=== PATIENT | male | born 1990 | race Caucasian/White ===

== ENCOUNTER 2024-03-14 19:00 | Observation (INO) | payer OTHER, SELFPAY ==
[2024-03-14 19:10] VITALS: BP 159/100; PULSE 77; TEMP 37.4; O2SAT 98; BMI 27.2
--- NOTE | 2024-03-14 19:52 | ED.EXTPRO1 ---
HPI - Extremity Problem General Chief complaint: Extremity Problem, Nontraumatic Stated complaint: LOWER EXTREMITY INJURY, LEFT Time Seen by Provider: 03/14/24 19:50 Source: patient Mode of arrival: walk-in History of Present Illness HPI Narrative: golf cart fell onto left ankle a couple of days ago. states it immediately turned black and blue. has area of dark contusion just superior to the lat. malleolus. States he feels a lot of pressure and mild pain. No fever or chills or nasusea Related Data Allergies Allergy/AdvReac Type Severity Reaction Status Date / Time No Known Drug Allergies Allergy Verified 03/14/24 19:14 Review of Systems ROS Status of ROS 10 or more systems reviewed and unremarkable except as noted in history and below Exam Constitutional Vital Signs, click to edit/add: Last Vital Signs Temp 99.3 F 03/14/24 19:10 Pulse 77 03/14/24 19:10 Resp 16 03/14/24 19:10 BP 159/100 H 03/14/24 19:10 Pulse Ox 98 03/14/24 19:10 O2 Del Method Room Air 03/14/24 19:10 Common normals: no apparent distress, average body habitus, oriented x3, no limitations, healthy appearing, alert and well nourished [facility] Common normals: normocephalic and head/scalp atraumatic Eye Common normals: EOMs intact bilaterally Respiratory Common normals: normal respiratory effort, no retractions, no use of accessory muscles and clear to auscultation bilaterally Cardio Common normals: regular rate, regular rhythm, S1 normal heart sound and S2 normal heart sound GI Common normals: Normal to inspection, nondistended, normoactive bowel sounds present, soft to palpation and non-tender Extremity Extremity image (front): 1. red streak up the leg. focal area of dark contusion 4cm just above lat. malleolus. edema of the ankle and foot. ecchymosis along side lat. aspect of the foot Neuro Common normals: oriented x3, CN's II-XII intact bilaterally, moves all extremities and no focal motor deficits Psych Appearance: grossly normal Course Vital Signs Vital signs: Vital Signs Temperature 99.3 F 03/14/24 19:10 Pulse Rate 77 03/14/24 19:10 Respiratory Rate 16 03/14/24 19:10 Blood Pressure 159/100 H 03/14/24 19:10 Pulse Oximetry 98 03/14/24 19:10 Oxygen Delivery Method Room Air 03/14/24 19:10 Temperature 99.3 F 03/14/24 19:10 Pulse Rate 77 03/14/24 19:10 Respiratory Rate 16 03/14/24 19:10 Blood Pressure 159/100 H 03/14/24 19:10 Pulse Oximetry 98 03/14/24 19:10 Oxygen Delivery Method Room Air 03/14/24 19:10 MDM - Extremity (Nontraumatic) MDM Narrative Medical decision making narrative: patient present 2 days after golf cart fell onto the left leg. presents with swelling and focal area of contusion at the ankle but also has red streak up the leg suspicious for cellulitis. xray demonstrates fracture of the lateral malleolus. IV clindamycin ordered. Discussed with online program coordinator orthopedics and patient admitted to hospitalist service Lab Data Labs: Lab Results 03/14/24 Range/Units 20:02 WBC 8.4 (4.0-11.0) 10^3/uL RBC 5.26 (4.70-6.10) 10^6/uL Hgb 15.6 (14.0-18.0) g/dL Hct 45.6 (42.0-54.0) % MCV 86.7 (80.0-94.0) fL MCH 29.7 (25.9-34.0) pg MCHC 34.2 (29.9-35.2) g/dL RDW 12.3 (11.0-15.0) % Plt Count 260 (150-450) 10^3/uL MPV 10.3 (9.5-13.5) fL Neut % (Auto) 57.5 (43.0-75.0) % Lymph % (Auto) 29.4 (20.5-60.0) % [place] % (Auto) 9.0 (1.7-12.0) % Eos % (Auto) 3.3 (0.9-7.0) % Baso % (Auto) 0.4 (0.2-2.0) % Neut # (Auto) 4.9 (1.4-6.5) 10^3/uL Lymph # (Auto) 2.5 (1.2-3.8) 10^3/uL [place] # (Auto) 0.8 (0.3-0.8) 10^3/uL Eos # (Auto) 0.3 (0.0-0.7) 10^3/uL Baso # (Auto) 0.0 (0.0-0.1) 10^3/uL Abs Immat Gran (auto) 0.03 (0.00-0.03) 10^3/uL Imm/Tot Granulo (auto) 0.4 (0.0-0.5) % Sodium 142 (136-145) mmol/L Potassium 4.0 (3.5-5.1) mmol/L Chloride 104 (98-107) mmol/L Carbon Dioxide 27.2 (21.0-32.0) mmol/L Anion Gap 14.8 BUN 18.0 (7.0-18.0) mg/dL Creatinine 1.01 (0.70-1.30) mg/dL Est GFR ( Amer) >60 (>=60) Est GFR (Non-Af Amer) >60 (>=60) BUN/Creatinine Ratio 17.8 Glucose 95 (74-106) mg/dL Lactate 1.1 (0.4-2.0) mmol/L Calcium 9.2 (8.5-10.1) mg/dL C-Reactive Protein 1.62 H (<=0.50) mg/dL Discharge Plan Discharge Chief Complaint: Extremity Problem, Nontraumatic Clinical Impression: Ankle fracture, left, Cellulitis Patient Disposition: Admitted As Inpatient Procedures ED Procedure Instructions Procedures Procedures: left ankle fracture. Posterior ankle fiber glass splint placed left ankle. tolerated well. N/V normal post procedure
--- NOTE | 2024-03-14 19:55 | XR_ITS ---
The [place] [id number] Patient Name: ANAYA MILES MRN: [id number] date: 1990 Sex: M Assigned Patient Location: ER Current Patient Location: ED.MAIN Accession/Order Number: [id number] Exam Date: 03/14/2024 20:30 Report Date: 03/14/2024 21:15 At the request of: DANIEL WEATHERS Procedure: XR ankle LT min 3V EXAM: XR ankle LT min 3V HISTORY: injury COMPARISON: Left foot x-ray 03/14/2024. TECHNIQUE: AP oblique lateral x-ray left ankle. FINDINGS: Distal fibular fracture mildly displaced with marked soft tissue swelling. Normal symmetric mortise. No other fracture. No joint effusion. XR/XR ankle LT min 3V IMPRESSION: Distal fibular fracture mildly displaced with marked soft tissue swelling. Electronically authenticated by: JACQUI QUINTANILLA Date: 03/14/2024 21:15
--- NOTE | 2024-03-14 19:55 | XR_ITS ---
The [address] [address] Patient Name: ANAYA MILES MRN: [id number] date: 1990 Sex: M Assigned Patient Location: ER Current Patient Location: ER Accession/Order Number: [id number] Exam Date: 03/14/2024 20:30 Report Date: 03/14/2024 21:16 At the request of: DANIEL WEATHERS Procedure: XR foot LT min 3V EXAM: XR foot LT min 3V HISTORY: Rolled ankle several days ago. Injury with pain. COMPARISON: Left ankle radiographs obtained the same day, dictated separately. TECHNIQUE: 3 view left foot. FINDINGS: There is an acute/subacute slightly obliquely oriented fracture of the distal fibular diaphysis with significant overlying lateral soft tissue swelling and edema from injury. This will be described in more detail on left ankle x-ray. Soft tissue swelling extends along the dorsum of the midfoot and forefoot. Remaining osseous structures are intact. No other fractures are seen at the left foot. Joints are maintained including ankle mortise. No joint effusion. No narrowing or dislocation. XR/XR foot LT min 3V IMPRESSION: 1. Acute/subacute distal fibular diaphyseal fracture with extensive overlying soft tissue swelling also extending dorsum ankle and midfoot. Please see left ankle report for details. 2. No additional fractures are seen at the foot. Electronically authenticated by: GELY HERNANDEZ Date: 03/14/2024 21:16
[2024-03-14 20:12] LABS: Basophils Percent Auto 0.4 % (0.2-2.0); Eosinophils Absolute Auto 0.3 10^3/uL (0.0-0.7); Eosinophils Percent Auto 3.3 % (0.9-7.0); Hematocrit 45.6 % (42.0-54.0); Hemoglobin 15.6 g/dL (14.0-18.0); Immature Granulocytes Abs Auto 0.03 10^3/uL (0.00-0.03); Immature Granulocytes Pct Auto 0.4 % (0.0-0.5); Lymphocytes Absolute Auto 2.5 10^3/uL (1.2-3.8); Lymphocytes Percent Auto 29.4 % (20.5-60.0); Mean Corpuscular HGB Conc 34.2 g/dL (29.9-35.2); Mean Corpuscular Hemoglobin 29.7 pg (25.9-34.0); Mean Corpuscular Volume 86.7 fL (80.0-94.0); Mean Platelet Volume 10.3 fL (9.5-13.5); Monocytes Absolute Auto 0.8 10^3/uL (0.3-0.8); Neutrophils Absolute Auto 4.9 10^3/uL (1.4-6.5); Neutrophils Percent Auto 57.5 % (43.0-75.0); Platelet Count 260 10^3/uL (150-450); Red Blood Count 5.26 10^6/uL (4.70-6.10); Red Cell Distribution Width 12.3 % (11.0-15.0); White Blood Count 8.4 10^3/uL (4.0-11.0)
[2024-03-14] MEDS: CLINDAMYCIN PHOSPHATE/D5W 900 MG/50 ML PIGGYBACK 100 MG IV (20:16)
[2024-03-14 20:24] LABS: Anion Gap 14.8; BUN Creatinine Ratio 17.8; C Reactive Protein 1.62 mg/dL (<=0.50); Calcium 9.2 mg/dL (8.5-10.1); Carbon Dioxide 27.2 mmol/L (21.0-32.0); Chloride 104 mmol/L (98-107); Estimated GFR (African America >60 (>=60); Estimated GFR (Non-African Ame >60 (>=60); Glucose 95 mg/dL (74-106); Sodium 142 mmol/L (136-145)
[2024-03-14 20:31] LABS: Lactate/Lactic Acid 1.1 mmol/L (0.4-2.0)
[2024-03-14 22:15] VITALS: BP 147/94; PULSE 71; TEMP 37; O2SAT 95
[2024-03-14 22:17] VITALS: BP 147/94; PULSE 71; TEMP 37; O2SAT 95; BMI 28.1
--- NOTE | 2024-03-14 22:44 | XR_ITS ---
The [address] [address] Patient Name: ANAYA MILES MRN: [id number] date: 1990 Sex: M Assigned Patient Location: MS Current Patient Location: MS Accession/Order Number: [id number] Exam Date: 03/14/2024 23:10 Report Date: 03/15/2024 00:17 At the request of: NICHOLE CARTY Procedure: XR hand RT 2V EXAM: XR hand RT 2V HISTORY: Patient states right hand pain only when they touched her thumb to their fingers. The lesion may have been caused from a recent fall according to notes. Swelling, bruising COMPARISON: None. TECHNIQUE: 2 view right hand. FINDINGS: Normal bone mineralization. No acute or healing fractures. On lateral view, the first finger and second finger touching with question of slight widening along the ulnar aspect of the first MCP joint. Correlate for point tenderness. Patient could've injured their ulnar collateral ligament with disruption. No subluxation or dislocation of joint is otherwise maintained. Remaining imaged joints of the right wrist and fingers are normal and well preserved. No osseous lesion. No soft tissue swelling. No erosive or destructive bone changes. XR/XR hand RT 2V IMPRESSION: 1. Question of some slight widening of the ulnar aspect first MCP joint which could reflect injury to the ulnar collateral ligament if symptomatic in this region. Correlate for point tenderness. Consider MRI of thumb on nonemergent or outpatient basis to assess if clinically warranted. Electronically authenticated by: GELY HERNANDEZ Date: 03/15/2024 00:17
[2024-03-14 23:04] VITALS: O2SAT 95
[2024-03-15 04:38] VITALS: BP 130/79; PULSE 59; TEMP 36.6; O2SAT 94
[2024-03-15] MEDS: CLINDAMYCIN PHOSPHATE/D5W 600 MG/50 ML PIGGYBACK 100 MG IV ×2 (04:38→11:27)
[2024-03-15 05:12] LABS: Basophils Percent Auto 0.4 % (0.2-2.0); Eosinophils Absolute Auto 0.3 10^3/uL (0.0-0.7); Eosinophils Percent Auto 4.4 % (0.9-7.0); Hematocrit 41.9 % (42.0-54.0); Immature Granulocytes Abs Auto 0.02 10^3/uL (0.00-0.03); Immature Granulocytes Pct Auto 0.3 % (0.0-0.5); Lymphocytes Absolute Auto 2.5 10^3/uL (1.2-3.8); Lymphocytes Percent Auto 34.1 % (20.5-60.0); Mean Corpuscular HGB Conc 33.4 g/dL (29.9-35.2); Mean Corpuscular Hemoglobin 29.4 pg (25.9-34.0); Mean Corpuscular Volume 87.8 fL (80.0-94.0); Mean Platelet Volume 10.5 fL (9.5-13.5); Monocytes Absolute Auto 0.9 10^3/uL (0.3-0.8); Neutrophils Absolute Auto 3.6 10^3/uL (1.4-6.5); Neutrophils Percent Auto 48.8 % (43.0-75.0); Platelet Count 239 10^3/uL (150-450); Red Blood Count 4.77 10^6/uL (4.70-6.10); Red Cell Distribution Width 12.3 % (11.0-15.0); White Blood Count 7.4 10^3/uL (4.0-11.0)
[2024-03-15 05:40] LABS: Alanine Aminotransferase 49 U/L (16-63); Albumin Globulin Ratio 1.3; Albumin Level 3.6 g/dL (3.4-5.0); Alkaline Phosphatase 82 U/L (46-116); Aspartate Amino Transferase 29 U/L (15-37); BUN Creatinine Ratio 16.2; Bilirubin Total 0.5 mg/dL (0.2-1.0); Calcium 8.8 mg/dL (8.5-10.1); Carbon Dioxide 29.8 mmol/L (21.0-32.0); Chloride 106 mmol/L (98-107); Estimated GFR (African America >60 (>=60); Estimated GFR (Non-African Ame >60 (>=60); Globulin 2.8 g/dL; Glucose 96 mg/dL (74-106); Potassium 3.8 mmol/L (3.5-5.1); Sodium 142 mmol/L (136-145); Total Protein 6.4 g/dL (6.4-8.2)
[2024-03-15 06:54] LABS: INR 1.04; Partial Thromboplastin Time 28.8 sec (22.3-36.2)
[2024-03-15 07:54] VITALS: BP 117/54; PULSE 72; TEMP 36.8; O2SAT 95
--- NOTE | 2024-03-15 08:20 | P.HP_ITS ---
HPI H&P: HPI History of Present Illness Chief complaint: LOW EXTREMITY INJURY, LT ANKLE FRACTURE CELLULITUS Narrative: Patient presented to the emergency room with increasing leg pain. Found to have open wound on his left ankle, also left fibular fracture. When I saw patient up on the medical surgical floor, he was resting comfortably in bed, no other complaints other than the left ankle pain. Denies chest pain or shortness of breath or URI symptoms. Opioid HPI Opioid Management Most Recent Pain and Opioid Data: Last Pain Assessment 03/15/24 08:44 Last ORT Total Score 1 03/14/24 22:12 Last ORT Risk Category Low Risk 03/14/24 22:12 Review of Systems ROS Status of ROS 10 or more systems reviewed and unremark able except as noted in history and below [facility] Social History (Updated 03/14/24 @ 22:33 by Alisha Gibbons) Within the past year, how often did you have a drink containing alcohol: 2-4 times a month Within the past year, how often did you have six or more drinks on one occasion: less than monthly Do you use any of these nicotine containing products: vaping products Previous occupational history: [employer] Known occupational exposures/hazards: No Highest level of school completed/degree received: high school graduate Are you now , , , , never or living with a partner: never In a typical week, how many times do you talk on the telephone with family, friends, or neighbors: 3 or more times per week How often do you get together with friends or relatives: 3 or more times per week How often do you attend rastafari or samaritan services: never Little interest or pleasure in doing things: not at all Feeling down, depressed, or hopeless: not at all Feel stressed/tense/nervous/anxious/difficulty sleeping: not at all Gender Identity: male Meds Home Medications and Allergies Allergies Allergy/AdvReac Type Severity Reaction Status Date / Time No Known Drug Allergies Allergy Verified 03/14/24 19:14 Exam Constitutional Vital Signs, click to edit/add: Last Vital Signs Temp 98.3 F 03/15/24 07:54 Pulse 72 03/15/24 07:54 Resp 16 03/15/24 07:58 BP 117/54 03/15/24 07:54 Pulse Ox 95 03/15/24 07:54 O2 Del Method Room Air 03/15/24 07:54 Documenting provider has reviewed patient's vital signs: yes Common normals: no apparent distress HENMT Common normals: normocephalic and head/scalp atraumatic Chest Common normals: inspection of chest normal Respiratory Common normals: normal respiratory effort, no retractions and clear to auscultation bilaterally Cardio Common normals: regular rate, regular rhythm and no murmurs GI Common normals: Normal to inspection, nondistended, normoactive bowel sounds present, soft to palpation and non-tender Extremity Common normals: abnormal to inspection (Leg wrapped, reviewed picture, significant open wound and cellulitis - left) Results Labs Labs: Short CBC 03/14/24 03/15/24 Range/Units 20:02 04:36 WBC 8.4 7.4 (4.0-11.0) 10^3/uL Hgb 15.6 14.0 (14.0-18.0) g/dL Hct 45.6 41.9 L (42.0-54.0) % Plt Count 260 239 (150-450) 10^3/uL BMP 03/14/24 03/15/24 20:02 04:36 Sodium 142 142 Potassium 4.0 3.8 Chloride 104 106 Carbon Dioxide 27.2 29.8 BUN 18.0 17.0 Creatinine 1.01 1.05 Glucose 95 96 Calcium 9.2 8.8 Liver Function 03/15/24 Range/Units 04:36 Total Bilirubin 0.5 (0.2-1.0) mg/dL AST 29 (15-37) U/L ALT 49 (16-63) U/L Alkaline Phosphatase 82 (46-116) U/L Albumin 3.6 (3.4-5.0) g/dL Assessment and Plan Assessment and Plan (1) Cellulitis: (2) Ankle fracture, left: Plan Uncontrolled hypertension secondary to lower extremity traumatic injury with a left fibular fracture, open wound with evidence for progressive cellulitis-will add Rocephin to the clindamycin, consult orthopedics for mildly displaced fibular fracture. Consult to wound therapy as well. Admission status: Initially placed patient in observation, orthopedic evaluation later today, depending on surgical intervention and recommendations for antibiotics patient in need to be changed to inpatient status. Medically necessary treatment could possibly span 2 midnights.
--- NOTE | 2024-03-15 08:43 | CM.NOTE ---
Rounds made with Dr. Bowens. Await further plan from Orthopaedics.
[2024-03-15] MEDS: 0.9 % SODIUM CHLORIDE 250 ML 10 ML IV (09:31)
[2024-03-15] MEDS: CEFTRIAXONE 1,000 MG in 0.9 % SODIUM CHLORIDE 50 ML 100 MG IV (09:32)
--- NOTE | 2024-03-15 15:12 | P.DS_ITS ---
DS: Providers Provider Date of admission: 03/14/24 22:01 Primary care physician: Non-Staff Physician, Consults: 03/14/24 21:14 Consult to Orthopedic Surgery Routine Consulting Provider: Paxton Smiley Reason For Exam: Reason for consultation: L ankle Cellulitis, ? Fx Has provider been notified: Yes 03/15/24 08:20 Consult to Wound Care Routine Consulting Provider: Neeraj Steve Reason for consultation: leg wound Has provider been notified: No DS: Diagnosis Discharge Diagnosis (1) Cellulitis: (2) Ankle fracture, left: Plan Uncontrolled hypertension secondary to lower extremity traumatic injury with a left fibular fracture, open wound with evidence for progressive cellulitis-will add Rocephin to the clindamycin, consult orthopedics for mildly displaced fibular fracture. Consult to wound therapy as well. Admission status: Initially placed patient in observation, orthopedic evaluation later today, depending on surgical intervention and recommendations for antibiotics patient in need to be changed to inpatient status. Medically ne cessary treatment could possibly span 2 midnights. ? DS: Summary Time Spent with Patient Time attestation: Total time spent providing and/or coordinating discharge services: Exam Constitutional Vital Signs, click to edit/add: Last Vital Signs Temp 98.3 F 03/15/24 07:54 Pulse 72 03/15/24 07:54 Resp 16 03/15/24 07:58 BP 117/54 03/15/24 07:54 Pulse Ox 95 03/15/24 07:54 O2 Del Method Room Air 03/15/24 07:54 DS: Data Data Completed and Pending Labs on day of discharge: Labs from last 24 hours 03/15/24 03/15/24 03/14/24 06:34 04:36 20:02 WBC 7.4 8.4 RBC 4.77 5.26 Hgb 14.0 15.6 Hct 41.9 L 45.6 MCV 87.8 86.7 MCH 29.4 29.7 MCHC 33.4 34.2 RDW 12.3 12.3 Plt Count 239 260 MPV 10.5 10.3 Neut % (Auto) 48.8 57.5 Lymph % (Auto) 34.1 29.4 Ray % (Auto) 12.0 9.0 Eos % (Auto) 4.4 3.3 Baso % (Auto) 0.4 0.4 Neut # (Auto) 3.6 4.9 Lymph # (Auto) 2.5 2.5 Ray # (Auto) 0.9 H 0.8 Eos # (Auto) 0.3 0.3 Baso # (Auto) 0.0 0.0 Abs Immat Gran (auto) 0.02 0.03 Imm/Tot Granulo (auto) 0.3 0.4 PT 11.0 INR 1.04 APTT 28.8 Sodium 142 142 Potassium 3.8 4.0 Chloride 106 104 Carbon Dioxide 29.8 27.2 Anion Gap 10.0 14.8 BUN 17.0 18.0 Creatinine 1.05 1.01 Est GFR ( Amer) >60 >60 Est GFR (Non-Af Amer) >60 >60 BUN/Creatinine Ratio 16.2 17.8 Glucose 96 95 Lactate 1.1 Calcium 8.8 9.2 Total Bilirubin 0.5 AST 29 ALT 49 Alkaline Phosphatase 82 C-Reactive Protein 1.62 H Total Protein 6.4 Albumin 3.6 Globulin 2.8 Albumin/Globulin Ratio 1.3 Discharge Plan Discharge Disposition: Home, Self-Care Condition: Good Discharge Medications: New cephalexin 500 mg capsule 1,000 mg PO BID Qty: 40 0RF doxycycline monohydrate 100 mg capsule 100 mg PO BID 10 Days Qty: 20 0RF Print Language: Angolan Forms: Portal Instructions
--- NOTE | 2024-03-15 15:25 | PM.ORCN ---
History of Present Illness HPI Consult date: 03/15/24 Consult reason: fracture Chief complaint: LOW EXTREMITY INJURY, LT ANKLE FRACTURE CELLULITUS Narrative: Patient reports on March 11 he had a golf cart to fall onto his left ankle with acute onset of pain. He developed increased pain and discoloration over the weekend and presented to the emergency room last night. He was admitted for IV antibiotics for cellulitis. Orthopedics was consulted for his fibular fracture. Patient reports very minimal discomfort. Review of Systems ROS Status of ROS 10 or more systems reviewed and unremarkable except as noted in history and below [facility] Social History (Updated 03/14/24 @ 22:33 by Alisha Gibbons) Within the past year, how often did you have a drink containing alcohol: 2-4 times a month Within the past year, how often did you have six or more drinks on one occasion: less than monthly Do you use any of these nicotine containing products: vaping products Previous occupational history: [employer] Known occupational exposures/hazards: No Highest level of school completed/degree received: high school graduate Are you now , , , , never or living with a partner: never In a typical week, how many times do you talk on the telephone with family, friends, or neighbors: 3 or more times per week How often do you get together with friends or relatives: 3 or more times per week How often do you attend adventist or hinduism services: never Little interest or pleasure in doing things: not at all Feeling down, depressed, or hopeless: not at all Feel stressed/tense/nervous/anxious/difficulty sleeping: not at all Gender Identity: male Meds Home Medications and Allergies Home Medications ?Medication ?Instructions ?Recorded ?Confirmed ?Type cephalexin 500 mg capsule 1,000 mg (2 x 500 mg) PO BID #40 03/15/24 Rx caps doxycycline monohydrate 100 mg 100 mg PO BID 10 days #20 caps 03/15/24 Rx capsule Allergies Allergy/AdvReac Type Severity Reaction Status Date / Time No Known Drug Allergies Allergy Verified 03/14/24 19:14 Exam Constitutional Vital Signs, click to edit/add: Last Vital Signs Temp 98.3 F 03/15/24 07:54 Pulse 72 03/15/24 07:54 Resp 16 03/15/24 07:58 BP 117/54 03/15/24 07:54 Pulse Ox 95 03/15/24 07:54 O2 Del Method Room Air 03/15/24 07:54 Extremity Other: Examination today of his left ankle and lower extremity reveals no erythema. He has some mild to moderate amount of foot swelling and ecchymosis. He has a marker drawn on his leg where there was previous cellulitis but this has resolved. He has an eschar from his wound over the distal fibula just above the level of the ankle mortise. There is no drainage and no surrounding erythema. He is grossly neurovascularly intact. Results Labs Labs: Abnormal lab results 03/14/24 03/15/24 Range/Units 20:02 04:36 Hct 41.9 L (42.0-54.0) % [place] # (Auto) 0.9 H (0.3-0.8) 10^3/uL C-Reactive Protein 1.62 H (<=0.50) mg/dL H & H 03/14/24 03/15/24 Range/Units 20:02 04:36 Hgb 15.6 14.0 (14.0-18.0) g/dL Hct 45.6 41.9 L (42.0-54.0) % Coagulation 03/15/24 Range/Units 06:34 INR 1.04 All other labs normal. Diagnostic results Ankle/Foot x-ray: other (Ankle x-rays were reviewed and show a minimally displaced distal fibular fracture. Ankle mortise is intact.) Assessment and Plan Assessment and Plan (1) Cellulitis: (2) Ankle fracture, left: Plan For his left ankle fracture no indication at this time for surgical indication. No indication of infected wound at this time. Would be reasonable to discharge on Keflex and follow-up in my office in 1 week. A boot and nonweightbearing to the left lower extremity along with elevation to help with the swelling. I have discussed with the patient that his wound will ultimately heal by secondary intention although potentially will need some debridement in the future. He will follow-up in 1 week to reassess his progress.
--- NOTE | 2024-03-15 15:28 | PC.NURSE ---
dr booker rounded and gave recommendations
[2024-03-15 15:49] VITALS: BP 127/85; PULSE 62; TEMP 36.6; O2SAT 94
--- NOTE | 2024-03-16 13:10 | CM.DCFOLLOWU ---
Person spoke with:patient How are you feeling? well How is your pain? none Did you understand your discharge instructions? yes Do you have any questions about your discharge instructions? no Were you given any prescriptions at discharge? yes Were you able to get your prescriptions filled? yes Do you understand how to take your medications as ordered? yes Do you have any questions about your follow up appointment and do you plan to keep your follow up appointment? no questions, follow up reviewed Is there anything else that you would like to discuss? no Questions/Comments/Concerns/Other: no
== END 2024-03-15 16:10 | disposition home or self-care (01) ==
LOC: ER 21:12 → MS 03-15 06:09
PROVIDERS: Nurse Practitioner Acute Care; Admitting Provider Family Medicine; Emergency Provider Internal Medicine; Visit Provider Family Medicine
DX: L03.116 Cellulitis of left lower limb (principal); S82.832A Other fracture of upper and lower end of left fibula, initial encounter for closed fracture; V86.99XA Unspecified occupant of other special all-terrain or other off-road motor vehicle injured in nontraffic accident, initial encounter; F17.290 Nicotine dependence, other tobacco product, uncomplicated; I10 Essential (primary) hypertension
CPT/HCPCS: 29515; 36415; 73120; 73610; 73630; 80048; 80053; 83605; 85025; 85610; 85730; 86140; 96365; 96366; 96367; 99285; G0378; J0696; J0736

== ENCOUNTER 2024-03-22 12:12 | Outpatient (OUT) | payer OTHER, SELFPAY ==
--- NOTE | 2024-03-22 | XR_ITS ---
The [address] [address] Patient Name: ANAYA MILES MRN: [id number] date: 1990 Sex: M Assigned Patient Location: Current Patient Location: Accession/Order Number: [id number] Exam Date: 03/22/2024 12:25 Report Date: 03/24/2024 05:51 At the request of: TAURUS [place] Procedure: XR ankle LT min 3V PROCEDURE: XR ankle LT min 3V HISTORY: LEFT ANKLE PAIN COMPARISON: XR ankle left 03/14/2024 FINDINGS: BONES:Stable cortical irregularity along lateral margin of lateral malleolus at the diametaphyseal junction. No visible fracture line. Unremarkable distal tibia and ankle joint. SOFT TISSUES:Mild lateral soft tissue swelling. EFFUSION:None visible. OTHER: Negative. XR/XR ankle LT min 3V IMPRESSION: 1. Stable cortical irregularity along lateral margin of lateral malleolus suspected to represent impaction fracture. 2. Mild swelling; significantly improved. Electronically authenticated by: TAURUS ZHONG Date: 03/24/2024 05:51
== END 2024-03-22 12:13 | disposition home or self-care (01) ==
LOC: EC 12:12
PROVIDERS: Visit Provider Orthopaedic Surgery
DX: M25.572 Pain in left ankle and joints of left foot (principal)
CPT/HCPCS: 73610

== ENCOUNTER 2024-03-29 12:15 | Outpatient (OUT) | payer OTHER, SELFPAY ==
--- NOTE | 2024-03-29 | XR_ITS ---
The [place] [id number] Patient Name: ANAYA MILES MRN: [id number] date: 1990 Sex: M Assigned Patient Location: Current Patient Location: Accession/Order Number: [id number] Exam Date: 03/29/2024 12:15 Report Date: 03/30/2024 07:18 At the request of: TAURUS [place] Procedure: XR ankle LT min 3V PROCEDURE: XR ankle LT min 3V COMPARISON: 03/22/2024 HISTORY: LEFT ANKLE PAIN FINDINGS: BONES:Again demonstrated is a cortical step-off along the distal fibula measuring 2 mm. No significant lytic or sclerotic changes. SOFT TISSUES:Negative. No visible soft tissue swelling. EFFUSION:None visible. OTHER: Negative. XR/XR ankle LT min 3V IMPRESSION: Cortical step-off lateral fibula, possibly representing a fracture, age indeterminate Electronically authenticated by: ARNOLD CERVANTES Date: 03/30/2024 07:18
== END 2024-03-29 12:16 | disposition home or self-care (01) ==
LOC: EC 12:15
PROVIDERS: Visit Provider Orthopaedic Surgery
DX: S82.892D Other fracture of left lower leg, subsequent encounter for closed fracture with routine healing (principal)
CPT/HCPCS: 73610

== ENCOUNTER 2024-04-26 09:57 | Outpatient (OUT) | payer OTHER, SELFPAY ==
--- NOTE | 2024-04-26 | XR_ITS ---
The [address] [address] Patient Name: ANAYA MILES MRN: [id number] date: 1990 Sex: M Assigned Patient Location: Current Patient Location: Accession/Order Number: [id number] Exam Date: 04/26/2024 10:08 Report Date: 04/28/2024 05:07 At the request of: TAURUS [place] Procedure: XR ankle LT min 3V PROCEDURE: XR ankle LT min 3V HISTORY: LEFT ANKLE PAIN COMPARISON: XR ankle left 03/29/2024, 03/11/2024 FINDINGS: BONES:Stable cortical step-off along distal lateral margin of fibula. No callus formation or change in alignment. SOFT TISSUES:Skin surface defect along the distal lateral margin overlying site of distal fibular fracture. EFFUSION:None visible. OTHER: Negative. XR/XR ankle LT min 3V IMPRESSION: 1. Stable appearance of distal fibula is suspected to represent a fracture. No radiographic evidence of bone healing or change. 2. Decreased lateral soft tissue swelling with suspected overlying soft tissue wound. Electronically authenticated by: TAURUS ZHONG Date: 04/28/2024 05:07
== END 2024-04-26 09:58 | disposition home or self-care (01) ==
LOC: EC 09:57
PROVIDERS: Visit Provider Orthopaedic Surgery
DX: S82.62XD Displaced fracture of lateral malleolus of left fibula, subsequent encounter for closed fracture with routine healing (principal)
CPT/HCPCS: 73610

== ENCOUNTER 2024-05-31 09:07 | Outpatient (OUT) | payer OTHER, SELFPAY ==
--- NOTE | 2024-05-31 | XR_ITS ---
The [place] [id number] Patient Name: ANAYA MILES MRN: [id number] date: 1990 Sex: M Assigned Patient Location: Current Patient Location: Accession/Order Number: [id number] Exam Date: 05/31/2024 09:15 Report Date: 06/01/2024 18:20 At the request of: ATURUS [place] Procedure: XR tibia fibula LT 2V EXAM: XR tibia fibula LT 2V HISTORY: LEFT TIB FIB PAIN COMPARISON: 04/26/2024 FINDINGS/IMPRESSION: 1. Unchanged irregularity of the distal fibula consistent with healing fracture. 2. Normal alignment of the knee joint and ankle joint. No ankle joint effusion. 3. No acute fracture of the proximal aspect of the tibia or fibula. Electronically authenticated by: OSMAN FRAZIER Date: 06/01/2024 18:20
== END 2024-05-31 09:08 | disposition home or self-care (01) ==
LOC: EC 09:07
PROVIDERS: Visit Provider Orthopaedic Surgery
DX: S82.62XD Displaced fracture of lateral malleolus of left fibula, subsequent encounter for closed fracture with routine healing (principal)
CPT/HCPCS: 73590

== ENCOUNTER 2024-07-01 08:49 | Day surgery (SDC) | payer OTHER, SELFPAY ==
[2024-07-01] VITALS (16 sets, daily range): BP systolic 121–160; BP diastolic 68–101; PULSE 76–107; TEMP 37.1; O2SAT 91–98; BMI 27.3
--- NOTE | 2024-07-01 | OP_ITS ---
OPERATION DATE: 07/01/2024 PREOPERATIVE DIAGNOSIS: Acute appendicitis. POSTOPERATIVE DIAGNOSIS: Gangrenous acute appendicitis with localized peritonitis without abscess. PROCEDURE: Laparoscopic appendectomy. SURGEON: Teddy Peng M.D. ANESTHESIA: General endotracheal. ESTIMATED BLOOD LOSS: Less than 5 mL. INDICATIONS AND CONSENT: Patient is a 33-year-old male with a less than 24 hour history of abdominal pain, localized into the right lower quadrant. He had leukocytosis, right lower quadrant peritoneal signs and CT scan with evidence of appendicolith and dilated, inflamed appendix. Indications, risks, benefits, alternatives of proceeding with laparoscopic appendectomy were explained extensively to the patient, including the risks of bleeding, infection, bowel injury, appendiceal stump leak, blood clot, pulmonary embolus, heart attack, anesthetic complications, need for further surgery or open procedure. All of his questions were answered. Informed consent was obtained. PROCEDURE: Patient brought to the operating room, placed in the supine position. General anesthesia was induced. Moon catheter was inserted using sterile technique. The abdomen was prepped and draped in the usual sterile fashion. A supraumbilical incision was made with the scalpel blade and carried down through subcutaneous tissue using blunt dissection. The fascia was grasped and incised. Two 0 Vicryl stay sutures were placed on either side of the midline fascia. Stanislav trocar was then inserted and secured using the stay sutures. The abdomen was then insufflated with carbon dioxide to a pressure of 15 mm/Hg. The scope was then inserted and the abdomen was visualized. Two 5 mm ports were then placed; one in the left lower quadrant, one in the suprapubic area, both under direct visualization. The appendix was noted to be significantly dilated with gangrenous changes. There was normal caliber to the base, and then the area where the fecalith was and distal, was obstructed, inflamed and gangrenous. There was no evidence of perforation or abscess. There were inflammatory changes of the terminal ileum that were adherent to the area as well. The non-inflamed portion of the appendix was grasped and a window was created in the avascular portion of the mesoappendix. The appendiceal artery could be noted within this window. It was clipped with two regular 5 mm clips. The base of the appendix was then stapled using an endoscopic stapler, 3.5 mm nitesh, 45 mm length. The mesoappendix was then divided using a reload of the stapler with the hugo thin vascular 45 mm load. There was good hemostasis. There was minimal oozing from the appendiceal staple line on the cecum and this was controlled with the 5 mm clips. The appendix was then brought out in an Endocatch bag through the umbilical port site. The abdomen was then copiously irrigated with saline until clear. The suture lines were inspected and noted to be hemostatic. All port sites were examined upon withdrawal of the ports. There was noted to be good hemostasis. The umbilical port site fascia was then closed with a 0 Vicryl figure of eight suture. All port sites were infiltrated with 0.5% Marcaine. The skin was then closed with interrupted 4-0 subcuticular Monocryl suture and skin glue. Sterile pressure dressings were applied as well as Medipore tape. Patient tolerated the procedure well, was extubated, Moon catheter was removed. He was sent to recovery room in good condition. . CC: Patient?s family physician [facility]
--- NOTE | 2024-07-01 | HP_ITS ---
HISTORY AND PHYSICAL ? Date:? 07/01/2024 ? CHIEF COMPLAINT:? Abdominal pain. ? HISTORY OF PRESENT ILLNESS:? Patient is a 33-year-old male, in good health, who reports the sudden onset of abdominal pain last evening.? Describes it as an ache, sharp at times, initially vague and then persisted and worsened in intensity.? He had a normal bowel movement yesterday.? Today, he had some nausea and episode of emesis.? He has not eaten anything today.? Because of the worsening pain, which was also worse with moving or ambulating, he presented to the ED for evaluation.? He was found to have a leukocytosis, as well as tenderness in the lower abdomen.? CT scan of the abdomen and pelvis was performed, which reveals a dilated appendix with a 7 mm fecalith and some mild stranding.? Patient denies previous abdominal surgery, is on no medications or [id number] medications.? Denies aspirin, nonsteroidal anti-inflammatory drugs.? He does vape some nicotine containing substances, but reports he has not in the last week.? He has no family history of GI malignancy or inflammatory bowel disease. ? ALLERGIES:? Patient has no known drug allergies. ? MEDICATIONS:? On no medications. ? PAST SURGICAL HISTORY:? No previous surgical operations. ? PAST MEDICAL HISTORY:? Did have an ankle fracture back in February that did not require surgery.? ? SOCIAL HISTORY:? Patient does report some social alcohol use, as well as vaping.? No illicit drug use. ? FAMILY HISTORY:? Noncontributory. ? REVIEW OF SYSTEMS:? Ten system review of systems is negative for recent weight loss or weight gain.? Denies increased fatigue or light-headedness.? Has had no earache or tinnitus.? No sinus congestion.? No sore throat or hoarseness.? No chest pain, palpitations or syncope.? No chronic cough, shortness of breath or hemoptysis.? He has had the abdominal pain, single episode of nausea/vomiting.? No diarrhea, constipation or decreased caliber of the stool.? No melena, hematochezia or bright red blood per rectum.? No dysuria, frequency, urgency or hematuria.? No headaches, seizures or tremors.? No easy bruising or bleeding.? No heat or cold intolerance.? No polydipsia, polyphagia or polyuria. ? PHYSICAL EXAM:? VITAL SIGNS:? Patient is afebrile.? Blood pressure is 153/89.? Pulse is 89 and regular.? Respiratory rate is 18.? O2 saturation is 98% on room air.? GENERAL:? In general, he is a well developed, well nourished male, in mild distress secondary to abdominal pain.? HEENT:? Normocephalic, atraumatic.? Sclerae anicteric.? Conjunctiva not injected.? Oral mucosa is moist without lesions.? NECK:? Supple with no adenopathy, thyromegaly or JVD. LUNGS:? Clear bilaterally.? CARDIAC EXAM:? Regular rhythm and rate without appreciable murmurs, rubs or gallops. ABDOMEN:? Soft.? There are positive bowel sounds.? It is non-distended.? There are right lower quadrant peritoneal signs.? No masses.? No hepatosplenomegaly.? No hernias.? No CVA tenderness. SKIN:? Warm and dry without lesions, rashes or ulcers. NEURO EXAM:? Non-focal.? Non-lateralizing.? Patient is awake, alert, oriented with appropriate affect. ? LABORATORY DATA:? White blood cell count is elevated at 16,900.? H&H is elevated as well due to dehydration.? Normal platelet count.? BUN is 13 with a creatinine of 0.9.? Glucose is mildly elevated at 121.? LFTs are normal.? C-reactive protein is elevated. ? IMAGING:? CT images are personally reviewed. ? ASSESSMENT:? A 33-year-old male with less than 24 hour history of abdominal pain, worsening now, localized to the right lower quadrant, with right lower quadrant peritoneal signs, leukocytosis and a CT scan with evidence of appendicolith and dilated appendix, all consistent with acute appendicitis. ? PLAN:? Indications, risks, benefits of proceeding with laparoscopic appendectomy were explained extensively to the patient, including risks of bleeding, infection, bowel injury, appendiceal stump leak, blood clot, pulmonary embolus, heart attack, anesthetic complications, need for further surgery or open procedure.? All of his questions were answered.? Informed consent was obtained.? We will begin IV antibiotics with Zosyn.? Keep patient NPO with hydration.? Proceed with a laparoscopic appendectomy.? ? CC:? Patient?s family physician KAYAD
--- OUTSIDE RECORDS SUMMARY | 2024-07-01 08:57 | XMS_ITS | CCD ---
Author Organization [facility] Care Team Providers Care Sheet Writer Name Role Phone DR ABEL DEL RIO Attending Cole DEL RIO, DR ABEL Sullivan Admitting Cole JORDAN, DR TOLBERT Consulting Unavailable REQUEST, DR MARLENE LISTED Primary Care Unavaila Rachael Travis Unavailable Nadya Lynch Unavailable Medications Current Medications Medication Drug Class(es) Dates Sig (Normalized) Sig (Original) amoxicillin 875 mg / clavulanate 125 mg oral tablet (1 source) Penicillin-class Antibacterial Start: 07-21-2023 take 1 tablet by mouth every twelve hours Amoxicillin-Pot Clavulanate 875-125 MG 1 tablet Orally every 12 hrs for 10 days Jun, Active predniSONE 20 mg oral tablet (1 source) Start: 01-23-2023 take 1 tablet by mouth every twelve hours prednisone 20 MG 1 tablet Orally BID for 5 days January, Active Problems Active Problems Problem Classification Problem Date Documented Date Episodic/Chronic Malaise and fatigue (1 source) Other fatigue; Translations: [OTHER FATIGUE] Onset: 10-09-2021 Episodic Other nervous system disorders (2 sources) Entrapment of right ulnar nerve; Translations: [Lesion of ulnar nerve, 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 Other nervous system disorders (4 sources) Paresthesia of skin; Translations: [PARESTHESIA OF SKIN] Onset: 10-07-2021 Episodic Other upper respiratory infections (3 sources) Acute pharyngitis, unspecified; Translations: [Acute sinusitis, unspecified] Episodic Otitis media and related conditions (1 source) Other acute nonsuppurative otitis media, bilateral Episodic Past or Other Problems Problem Classification Problem Date Documented Da te Episodic/Chronic Unclassified (1 source) Suspected COVID-19 virus infection Z20.822 Results Test Name Value Interpretation Reference Range Facility COVID + FLU Quick Testingon 07-21-2023 SARS-CoV-2 (COVID-19) RNA MARTA+probe Ql (Unsp spec) Negative [facility] Other COVID + FLU Quick Testing Negative [facility] Other Quick Strepon 07-21-2023 S. pyogenes Org specific cx Ql (Throat) Negative [facility] Other Quick Strep [facility] Other Quick Strepon 01-23-2023 S. pyogenes Org specific cx Ql (Throat) Negative [facility] Other Quick Strep [facility] Other CBC AUTO DIFFon 10-07-2021 BASO # 0.0 103/ul Normal 0.0-0.1 [facility] Comment on above: Performed By: #### C BC #### [facility] [address] [place] [address] Dr. Scott King Basophils/100 WBC (Bld) 0.3 % Normal 0.2-2.0 [facility] Comment on above: Performed By: #### C BC #### [facility] [address] [place] [address] Dr. Scott King EO # 0.2 103/ul Normal 0.0-0.7 [facility] Comment on above: Performed By: #### C BC #### [facility] [address] [place] [address] Dr. Scott King Eosinophils/100 WBC (Bld) 1.6 % Normal 0.9-7.0 [facility] Comment on above: Performed By: #### C BC #### [facility] [address] [place] [address] Dr. Scott King Erythrocyte distribution width (RBC) [Ratio] 12.8 % Normal 11.0-15.0 [facility] Comment on above: Performed By: #### C BC #### [facility] [address] [place] [address] Dr. Scott King Hematocrit (Bld) [Volume fraction] 51.3 % Normal 42.0-54.0 [facility] Comment on above: Performed By: #### C BC #### [facility] [address] [address] [address] Scott King Hemoglobin (Bld) [Mass/Vol] 17.5 g/dL Normal 14.0-18.0 [facility] Comment on above: Performed By: #### C BC #### [facility] [address] [place] [address] Dr. Scott King IG # 0.14 10e3/ul Critically high 0.00-0.03 [facility] Comment on above: Performed By: #### C BC #### [facility] [address] [place] [address] Dr. Scott King IG % 1.5 % Critically high 0.0-0.5 [facility] Comment on above: Performed By: #### C BC #### [facility] [address] [place] [address] Dr. Scott King LYMPH # 2.5 103/ul Normal 1.2-3.8 [facility] Comment on above: Performed By: #### C BC #### [facility] [address] [place] [address] Dr. Scott King Lymphocytes/100 WBC (Bld) 27.1 % Normal 20.5-60.0 [facility] Comment on above: Performed By: #### C BC #### [facility] [address] [place] [address] Dr. Scott King MANUAL DIFF REQ NO Normal [facility] Comment on above: Performed By: #### C BC #### [facility] [address] [place] [address] Dr. Scott King MCH (RBC) [Entitic mass] 29.6 pg Normal 25.9-34.0 [facility] Comment on above: Performed By: #### C BC #### [facility] [address] [place] [address] Dr. Scott King MCHC (RBC) [Mass/Vol] 34.1 g/dL Normal 29.9-35.2 [facility] Comment on above: Performed By: #### C BC #### [facility] [id number] Scott King MCV (RBC) [Entitic vol] 86.7 fL Normal 80.0-94.0 [facility] Comment on above: Performed By: #### C BC #### [facility] [address] [address] [address] Scott King MONO # 1.2 103/ul Critically high 0.3-0.8 [facility] Comment on above: Performed By: #### C BC #### [facility] [address] [address] [address] Scott King Monocytes/100 WBC (Bld) 12.5 % Critically high 1.7-12.0 [facility] Comment on above: Performed By: #### C BC #### [facility] [address] [address] [address] Scott King NEUT # 5.3 103/ul Normal 1.4-6.5 [facility] Comment on above: Performed By: #### C BC #### [facility] [address] [address] [address] Scott King Neutrophils/100 WBC (Bld) 57.0 % Normal 43.0-75.0 [facility] Comment on above: Performed By: #### C BC #### [facility] [address] [address] [address] Scott King Platelet mean volume (Bld) [Entitic vol] 9.7 fL Normal 9.5-13.5 [facility] Comment on above: Performed By: #### C BC #### [facility] [address] [address] [address] Scott King PLT 238 103/ul Normal 150-450 [facility] Comment on above: Performed By: #### C BC #### [facility] [id number] Scott King RBC 5.92 106/ul Normal 4.70-6.10 [facility] Comment on above: Performed By: #### C BC #### [facility] [address] [address] [address] Scott King WBC 9.4 103/ul Normal 4.0-11.0 [facility] Comment on above: Performed By: #### C BC #### [facility] [address] [address] [address] Scott King MONOon 10-07-2021 Monocytes (Bld) [#/Vol] Negative Normal NEGATIVE [facility] Comment on above: Performed By: #### M CARMEL #### [facility] [address] [place] [address] Dr. Scott King PROF CHEM 8 (BAS METB)on Anion gap [Moles/Vol] 10.7 mmol/L Normal [facility] Comment on above: Performed By: #### T SH, BMP #### [facility] [address] [place] [address] Dr. Scott King Calcium [Mass/Vol] 9.6 mg/dL Normal 8.4-10.2 [facility] Comment on above: Performed By: #### T SH, BMP #### [facility] [address] [place] [address] Dr. Scott King Chloride [Moles/Vol] 104 mmol/L Normal 98-107 [facility] Comment on above: Performed By: #### T SH, BMP #### [facility] [address] [place] [address] Dr. Scott King CO2 [Moles/Vol] 30.1 mmol/L Critically high 22.0-30.0 [facility] Comment on above: Performed By: #### T SH, BMP #### [facility] [address] [place] [address] Dr. Scott King Creatinine [Mass/Vol] 0.89 mg/dL Normal 0.66-1.25 [facility] Comment on above: Performed By: #### T SH, BMP #### [facility] [address] [place] [address] Dr. Scott King EGFR-AF SLOVENIAN >60 Normal >=60 [facility] Comment on above: Performed By: #### T SH, BMP #### [facility] [address] [address] [address] Scott King EGFR-NON AF SLOVENIAN >60 Normal >=60 [facility] Comment on above: Performed By: #### T SH, BMP #### [facility] [address] [address] [address] Scott King Glucose [Mass/Vol] 81 mg/dL Normal 74-106 [facility] Comment on above: Performed By: #### T SH, BMP #### [facility] [address] [address] [address] Scott King Potassium [Moles/Vol] 3.8 mmol/L Normal 3.4-5.0 [facility] Comment on above: Performed By: #### T SH, BMP #### [facility] [address] [place] [address] Dr. Scott King Sodium [Moles/Vol] 141 mmol/L Normal 137-145 [facility] Comment on above: Performed By: #### T SH, BMP #### [facility] [address] [place] [address] Dr. Scott King Urea nitrogen [Mass/Vol] 19.0 mg/dL Normal 9.0-20.0 [facility] Comment on above: Performed By: #### T SH, BMP #### [facility] [address] [place] [address] Dr. Scott King Urea nitrogen/Creatini ne [Mass ratio] 21.3 mg/mg Normal [facility] Comment on above: Performed By: #### T SH, BMP #### [facility] [address] [place] [address] Dr. Scott King TSHon 10-07-2021 TSH 2.491 uIU/mL Normal 0.470-4.680 [facility] Comment on above: Performed By: #### T SH, BMP #### [facility] [address] [place] [address] Dr. Scott King TSH RANGE SEE BELOW Normal [facility] Comment on above: Result Comment: <0.3 4 UIU/ml HYPERTHYROID 0.34-5.60 UIU/ml EUTHYROID >5.60 UIU/ml HYPOTHYROID Performed By: #### T , [facility] #### [facility] [address] [place], [place] [address] Dr. Scott King XR Chest 2 Views*on 09-20-20 21 XR Chest 2 Views* CLINICAL HISTORY: Le ft anterior chest numbness COMPARISON: None. TECHNIQUE: Chest radiographs, PA and lateral RESULT: No consolidation. No pleural effusion. No pneumothorax. Normal pulmonary vascular pattern. Normal cardiomediastinal silhouette.] No acute osseous findings. IMPRESSION: No acute radiographic abnormality. Report reported and signed by KENYATTA TOLEDO on 09/20/2021 1220 Normal [facility] XR Spine Cervical Complete*o n 09-20-2021 XR Spine Cervical Complete* CLINICAL HISTORY: Neck pain COMPARISON: None. TECHNIQUE: Cervical spine radiographs including oblique images. RESULT: Cervical lordosis is maintained. Vertebral body height and disc spaces are within normal limits. No fracture or subluxation. Atlantoaxial interval is maintained. No significant spondylotic change of the cervical spine. Neural foramina are patent. Partially imaged thoracic spine appear within normal limits. Precervical soft tissue is unremarkable. Imaged lung kim are clear. IMPRESSION: No acute findings. Report reported and signed by KENYATTA TOLEDO on 09/20/2021 1222 Normal [facility] [employer] XR hand RT min 3V*on 021 XR hand RT min 3V* [facility] [place] [address] [place] [address] XRay Report Signed Patient: Anaya Miles MR#: [id number] 5 : 1990 Acct:[id number] Age/Sex: 30 / M ADM Date: 02/09/21 Loc: XDUCLY Room: Type: [facility] Attending Dr: Mary QUESADA Ordering Provider: MARY ROCHE Date of Service: 02/09/21 XR/XR hand RT min 3V*: Injury of right hand, initial encounter Copies to: MARY ROCHE CLINICAL HISTORY: Right hand pain to the second, third and fourth metacarpals for 2 weeks. No known injury. XR hand RT min 3V* COMPARISON: None FINDINGS: AP, lateral and oblique views of the right hand were obtained. There is no evidence of fracture, dislocation or bony erosion. No significant soft tissue abnormality is noted. XR/XR hand RT min 3V* IMPRESSION: NEGATIVE EXAMINATION. Impression dictated by: Umesh John M.D.02/09/2021 11:37 AM Dictation Location: [place] [address] Transcribed By: [facility] 02/09/21 1137 Dictated By: Umesh John MD 02/09/21 1136 Signed By: 02/09/21 1137 [facility] Vital Signs Date Time Vital Sign Value Performing Clinician Facility 07-21-2023 18:00-0400 Body height 182.88 cm Nadya Lynch Other [facility] Other 07-21-2023 18:00-0400 Body mass index (BMI) [Ratio] 27.5 kg/m2 Nadya Lynch Other [facility] Other 07-21-2023 18:00-0400 Body temperature 97.9 [degF] Nadya Lynch Other [facility] Other 07-21-2023 18:00-0400 Body weight 91.99 kg Nadya Lynch Other [facility] Other 07-21-2023 18:00-0400 Respiratory rate 18 /min Nadya Lynch Other [facility] Other 07-21-2023 18:00-0400 SaO2% (BldA) [Mass fraction] 95 % Nadya Lynch Other [facility] Other 01-23-2023 19:20-0400 Body height 182.88 cm Rachael Cummings Other [facility] Other 01-23-2023 19:20-0400 Body mass index (BMI) [Ratio] 27.12 kg/m2 Rachael Cooleyler Other [facility] Other 01-23-2023 19:20-0400 Body temperature 98 [degF] Rachael Cummings Other [facility] Other 01-23-2023 19:20-0400 Body weight 90.72 kg Rachael Cummings Other [facility] Other 01-23-2023 19:20-0400 Respiratory rate 18 /min Rachael Cummings Other [facility] Other 01-23-2023 19:20-0400 SaO2% (BldA) [Mass fraction] 96 % Rachael Cooleyler Other [facility] Other Encounters Encounter Date Encounter Type Care Provider Facility Start: 07-21-2023 End: 07-21-2023 ambulatory Nadya Lynch Other [facility] Other Start: 07-21-2023 Office outpatient vi sit 25 minutes Nadya Lynch [facility] Start: 01-23-2023 End: 01-23-2023 ambulatory Rachael Cummings Other [facility] Other Start: 01-23-2023 Office outpatient vi sit 25 minutes Rachael Cummings [facility] Start: 10-07-2021 End: 10-07-[address] ABEL DEL RIO Facility: Payers Date Payer Category Payer Unknown [id number] 1957 Unknown [id number] Unknown [id number] Social History Date Type Detail Facility Sex Assigned At [facility] Other Evaluation note 07-21-2023 Note Date & Type Note Facility 07-21-2023 Evaluation note Encounter Date Diagnosis Assessment Notes Jun, Sore throat (ICD-10 - J02.9) Jun, Acute non-recurrent sinusitis, unspecified location (ICD-10 - J01.90) We will treat as sinus infection. Take Augmentin as prescribed and finish antibiotic course even if symptoms improve. Instructed to use cuzj-kjo-[id number] r sinus medication per label instructions for treatment of symptoms. May use Tylenol and or Motrin as needed for fever and discomfort. Follow-up with PCP if symptoms do not improve or worsen. All questions and concerns addressed Jun, Suspected COVID-19 virus infection (ICD-10 - Z20.822) [facility] Other Evaluation note 01-23-2023 Note Date & Type Note Facility 01-23-2023 Evaluation note Encounter Date Diagnosis Assessment Notes January, Sore throat (ICD-10 - J02.9) January, Acute effusion of both middle ears (ICD-10 - H65.193) Advised patient that rapid strep test was negative today in office. Discussed diagnosis with patient, explained to patient that there is middle ear fluid without signs of bacterial infection, antibiotics are not indicated at this time. This is commonly due to ET dysfunction, viral illness, allergies, barotrauma, or recent AOM. Advised patient that fluid in middle ear may take several weeks to resolve. Take Rx medications as directed. Encouraged use of OTC Zyrtec/Claritin and Flonase. Supportive treatment as directed, push fluids/test, Tylenol/Motrin for discomfort. Follow up with PCP in 2 weeks or sooner for new or worsening symptoms. Patient verbalizes understanding and is agreeable to treatment plan [facility] Other Summary Purpose Family History No Family History Records FoundNo Family History Records FoundNo Family History Records Found Advance Directives No Advanced Directives Records FoundNo Advanced Directives Records FoundNo Advanced Directives Records Found Additional Source Comments (unrecognized sect ion and content) No Status Records FoundNo Status Records FoundNo Status Records Found INFORMATION SOURCE (unrecogn ized section and content) DATE CREATED AUTHOR 09/21/2021 [facility] dical Specialist DATE CREATED AUTHOR AUTHOR'S ORGANIZ ATION 10/09/2021 [facility]ital DATE CREATED AUTHOR AUTHOR'S ORGANIZ ATION 10/10/2021 [facility] REASON FOR VISIT (unrecogniz ed section and content) SORE THROATSORE THROAT, SORE EARS FOR RECORDS PERTAINING TO PATIENTS WHO ARE OR HAVE BEEN ENROLLED IN A CHEMICAL DEPENDENCY/SUBSTANCEABUSE PROGRAM, SOME INFORMATION MAY BE OMITTED. This clinical summary was aggregated from multiple sources. Caution should be exercised in using it in the provision of clinical care. This summary normalizes information from multiple sources, and as a consequence, information in this document may materially change the coding, format and clinical context of patient data. In addition, data may be omitted in some cases. CLINICAL DECISIONS SHOULD BE BASED ON THE PRIMARY CLINICAL RECORDS. [employer] provides no warranty or guarantee of the accuracy or completeness of information in this document.
--- NOTE | 2024-07-01 09:02 | CT_ITS ---
[address] [address] Patient Name: ANAYA MILES MRN: [id number] date: 1990 Sex: M Assigned Patient Location: ER Current Patient Location: Accession/Order Number: [id number] Exam Date: 07/01/2024 09:22 Report Date: 07/01/2024 09:44 At the request of: REEMA DUNCAN Procedure: CT abdomen pelvis wo con EXAMINATION: CT abdomen pelvis wo con HISTORY: lower abd pain COMPARISON: No relevant comparison available. TECHNIQUE: Axial, Coronal, and Sagittal images were created without IV contrast. Dose reduction techniques were achieved by using automated exposure control and/or adjustment of mA and/or kV according to patient size and/or use of iterative reconstruction technique. FINDINGS: LUNG BASES: No visible pulmonary or pleural disease. LIVER: No enlargement, atrophy, abnormal density, or significant focal lesion. BILIARY: No dilatation or calcification. PANCREAS: No lesion, fluid collection, ductal dilatation, or atrophy. SPLEEN: No enlargement or focal lesion. ADRENALS: No mass or enlargement. KIDNEYS: No mass, obstruction, or calcification. BOWEL/MESENTERY: No visible mass, obstruction, or bowel wall thickening. AORTA/VASCULAR: No aneurysm or dissection. RETROPERITONEUM: No mass or adenopathy. LYMPH NODES: No adenopathy. URINARY BLADDER: No visible focal wall thickening, lesion, or calculus. PELVIC ORGANS: No visible mass. Pelvic organs appropriate for patient age. ABDOMINAL WALL: No mass or hernia. BONES: No bony lesion or fracture. OTHER: Negative. CT/CT abdomen pelvis wo con IMPRESSION: No acute intraperitoneal abnormality Electronically authenticated by: ARNOLD CERVANTES Date: 07/01/2024 09:44
--- NOTE | 2024-07-01 09:02 | ED_ITS ---
HPI - Abdominal Pain General Chief Complaint: Abdominal Pain Stated Complaint: ABDOMINAL PAIN Time Seen by Provider: 07/01/24 09:01 Source: patient Mode of arrival: walk-in Limitations: no limitations History of Present Illness HPI narrative: The patient is a 33-year-old male presenting to us with a lower abdominal pain associated with nausea and vomiting, the patient mentioned that he had his last bowel movement yesterday and it was not constipated. He also denies any other complaints of fever chills or any exposure of anybody with similar symptoms. No history of previous surgeries Related Data Home Medications ?Medication ?Instructions ?Recorded ?Confirmed No Known Home Medications 07/01/24 07/01/24 Allergies Allergy/AdvReac Type Severity Reaction Status Date / Time No Known Drug Allergies Allergy Verified 07/01/24 08:59 Review of Systems ROS Status of ROS 10 or more systems reviewed and unremark able except as noted in history and below [facility] Medical History (Updated 07/01/24 @ 10:57 by Arianna Daniels MD) Cellulitis ?L03.90 - Cellulitis, unspecified (ICD-10) Ankle fracture, left ?S82.892A - Other fracture of left lower leg, initial encounter for closed fracture (ICD-10) Social History (Updated 03/14/24 @ 22:33 by Alisha Gibbons) Within the past year, how often did you have a drink containing alcohol: 2-4 times a month Within the past year, how often did you have six or more drinks on one occasion: less than monthly Do you use any of these nicotine containing products: vaping products Previous occupational history: [employer] Known occupational exposures/hazards: No Highest level of school completed/degree received: high school graduate Are you now , , , , never or living with a partner: never In a typical week, how many times do you talk on the telephone with family, friends, or neighbors: 3 or more times per week How often do you get together with friends or relatives: 3 or more times per week How often do you attend rastafarian or alevism services: never Little interest or pleasure in doing things: not at all Feeling down, depressed, or hopeless: not at all Feel stressed/tense/nervous/anxious/difficulty sleeping: not at all Gender Identity: male Exam Narrative Exam Narrative: Nurses notes and vital signs reviewed and patient is not hypoxic. General: Well-appearing and in no apparent distress. Skin: Warm, dry, no pallor noted. No rash. Head: Normocephalic, atraumatic. Neck: Supple, non-tender. Eye: Pupils are equal, round and EOMI. No scleral icterus. Ears, Nose, Mouth, and Throat: TM are clear, no nasal mucosal hypertrophy. Oral mucosa is moist, no posterior oropharynx erythema, uvula is mid-line Cardiovascular: Regular Rate and Rhythm without murmur, gallop or rub. Respiratory: No accessory muscle use or respiratory distress. Lungs are clear to auscultation, no wheezing, rales or rhonchi Chest Wall: no tenderness Back: No midline thoracic or lumbar vertebral tenderness. No CVA tenderness Musculoskeletal: normal ROM, no calf or popliteal tenderness, no lower extre mity edema/swelling GI: Abdomen is soft, non-distended. Normal bowel sounds. No masses appreciated. The patient have a lower abdominal tenderness mostly toward suprapubic area and the right lower quadrant, no rebound, guarding, or rigidity noted. Neurological: A&O x4. No cranial nerve dysfunction observed. No truncal ataxia. Moves all extremities. Sensation intact. Psychiatric: Cooperative and interactive. Normal mood and affect. Constitutional Vital Signs, click to edit/add: Last Vital Signs Temp 98.7 F 07/01/24 08:55 Pulse 89 07/01/24 11:05 Resp 18 07/01/24 11:05 BP 153/89 H 07/01/24 11:05 Pulse Ox 98 07/01/24 11:05 O2 Del Method Room Air 07/01/24 08:55 Course Vital Signs Vital signs: Vital Signs Temperature 98.7 F 07/01/24 08:55 Pulse Rate 81 07/01/24 08:55 Respiratory Rate 20 07/01/24 08:55 Blood Pressure 160/90 H 07/01/24 08:55 Pulse Oximetry 97 07/01/24 08:55 Oxygen Delivery Method Room Air 07/01/24 08:55 Temperature 98.7 F 07/01/24 08:55 Pulse Rate 89 07/01/24 11:05 Respiratory Rate 18 07/01/24 11:05 Blood Pressure 153/89 H 07/01/24 11:05 Pulse Oximetry 98 07/01/24 11:05 Oxygen Delivery Method Room Air 07/01/24 08:55 MDM - Abdominal Pain MDM Narrative Medical decision making narrative: The patient CBC shows leukocytosis Chemistry was within normal The patient was treated in the ER with Pepcid IV as well as Zofran and Toradol CAT scan abdomen and pelvis without contrast--- showed that the patient have possible acute diverticulitis Patient case was discussed with and the he requested the patient to be started on Zosyn The patient was started on Zosyn and he will be kept n.p.o. for possible surgery Lab Data Labs: Lab Results 07/01/24 Range/Units 08:59 WBC 16.9 H (4.0-11.0) 10^3/uL RBC 6.27 H (4.70-6.10) 10^6/uL Hgb 18.5 H (14.0-18.0) g/dL Hct 52.9 (42.0-54.0) % MCV 84.4 (80.0-94.0) fL MCH 29.5 (25.9-34.0) pg MCHC 35.0 (29.9-35.2) g/dL RDW 13.1 (11.0-15.0) % Plt Count 263 (150-450) 10^3/uL MPV 10.6 (9.5-13.5) fL Neut % (Auto) 79.3 H (43.0-75.0) % Lymph % (Auto) 11.9 L (20.5-60.0) % [place] % (Auto) 7.4 (1.7-12.0) % Eos % (Auto) 0.8 L (0.9-7.0) % Baso % (Auto) 0.2 (0.2-2.0) % Neut # (Auto) 13.4 H (1.4-6.5) 10^3/uL Lymph # (Auto) 2.0 (1.2-3.8) 10^3/uL [place] # (Auto) 1.3 H (0.3-0.8) 10^3/uL Eos # (Auto) 0.1 (0.0-0.7) 10^3/uL Baso # (Auto) 0.0 (0.0-0.1) 10^3/uL Abs Immat Gran (auto) 0.06 H (0.00-0.03) 10^3/uL Imm/Tot Granulo (auto) 0.4 (0.0-0.5) % Sodium 138 (136-145) mmol/L Potassium 4.3 (3.5-5.1) mmol/L Chloride 100 (98-107) mmol/L Carbon Dioxide 23.7 (21.0-32.0) mmol/L Anion Gap 18.6 BUN 13.0 (7.0-18.0) mg/dL Creatinine 0.90 (0.70-1.30) mg/dL Est GFR ( Amer) >60 (>=60 mL/min/1.73m^2) Est GFR (Non-Af Amer) >60 (>=60 mL/min/1.73m^2) BUN/Creatinine Ratio 14.4 Glucose 121 H (74-106) mg/dL Calcium 9.7 (8.5-10.1) mg/dL Total Bilirubin 0.8 (0.2-1.0) mg/dL AST 23 (15-37) U/L ALT 54 (16-63) U/L Alkaline Phosphatase 100 (46-116) U/L Total Protein 7.1 (6.4-8.2) g/dL Albumin 4.4 (3.4-5.0) g/dL Globulin 2.7 g/dL Albumin/Globulin Ratio 1.6 Discharge Plan Discharge Patient Disposition: Admitted to Surgery
[2024-07-01] MEDS: KETOROLAC TROMETHAMINE 30 MG/ML VIAL 15 MG IVP (09:13)
[2024-07-01] MEDS: ONDANSETRON PF 4 MG/2 ML VIAL IV (09:13)
[2024-07-01] MEDS: FAMOTIDINE/PF 20 MG/2 ML VIAL IV (09:13)
[2024-07-01 09:20] LABS: Basophils Percent Auto 0.2 % (0.2-2.0); Eosinophils Absolute Auto 0.1 10^3/uL (0.0-0.7); Eosinophils Percent Auto 0.8 % (0.9-7.0); Hematocrit 52.9 % (42.0-54.0); Hemoglobin 18.5 g/dL (14.0-18.0); Immature Granulocytes Abs Auto 0.06 10^3/uL (0.00-0.03); Immature Granulocytes Pct Auto 0.4 % (0.0-0.5); Lymphocytes Percent Auto 11.9 % (20.5-60.0); Mean Corpuscular Hemoglobin 29.5 pg (25.9-34.0); Mean Corpuscular Volume 84.4 fL (80.0-94.0); Mean Platelet Volume 10.6 fL (9.5-13.5); Monocytes Absolute Auto 1.3 10^3/uL (0.3-0.8); Monocytes Percent Auto 7.4 % (1.7-12.0); Neutrophils Absolute Auto 13.4 10^3/uL (1.4-6.5); Neutrophils Percent Auto 79.3 % (43.0-75.0); Platelet Count 263 10^3/uL (150-450); Red Blood Count 6.27 10^6/uL (4.70-6.10); Red Cell Distribution Width 13.1 % (11.0-15.0); White Blood Count 16.9 10^3/uL (4.0-11.0)
[2024-07-01 09:31] LABS: Alanine Aminotransferase 54 U/L (16-63); Albumin Globulin Ratio 1.6; Albumin Level 4.4 g/dL (3.4-5.0); Alkaline Phosphatase 100 U/L (46-116); Anion Gap 18.6; Aspartate Amino Transferase 23 U/L (15-37); BUN Creatinine Ratio 14.4; Bilirubin Total 0.8 mg/dL (0.2-1.0); Calcium 9.7 mg/dL (8.5-10.1); Carbon Dioxide 23.7 mmol/L (21.0-32.0); Chloride 100 mmol/L (98-107); Estimated GFR (African America >60 (>=60 mL/min/1.73m^2); Estimated GFR (Non-African Ame >60 (>=60 mL/min/1.73m^2); Globulin 2.7 g/dL; Glucose 121 mg/dL (74-106); Potassium 4.3 mmol/L (3.5-5.1); Sodium 138 mmol/L (136-145); Total Protein 7.1 g/dL (6.4-8.2)
[2024-07-01] MEDS: PIPERACILLIN SODIUM/TAZOBACTAM 3.375 GM in 0.9 % SODIUM CHLORIDE 50 ML IV (11:13)
--- OUTSIDE RECORDS SUMMARY | 2024-07-01 13:03 | XMS_ITS | CCD ---
Author Organization [facility] Care Team Providers Care Graphic Specialist Name Role Phone DR ABEL DEL RIO [...] (COVID-19) RNA MARTA+probe Ql (Unsp spec) Negative [facility] Other COVID + FLU Quick Testing Negative [facility] Other Quick Strepon 07-21-2023 S. pyogenes Org specific cx Ql (Throat) Negative [facility] Quick Strep [facility] Quick Strepon 01-23-2023 S. pyogenes Org specific cx Ql (Throat) Negative [facility] Quick Strep [facility] Other CBC AUTO DIFFon 10-07-2021 BASO # 0.0 103/ul Normal 0.0-0.1 [facility] Comment on above: Performed By: #### C BC #### [facility] [address] [place] [address] Dr. Scott King Basophils/100 WBC (Bld) 0.3 % Normal 0.2-2.0 [facility] Comment on above: Performed By: #### C BC #### [facility] [address] [place] [address] Dr. Scott King EO # 0.2 103/ul Normal 0.0-0.7 [facility] Comment on above: Performed By: #### C BC #### [facility] [address] [place] [address] Dr. Scott King Eosinophils/100 WBC (Bld) 1.6 % Normal 0.9-7.0 [facility] Comment on above: Performed By: #### C BC #### [facility] [address] [place] [address] Dr. Scott King Erythrocyte distribution width (RBC) [Ratio] 12.8 % Normal 11.0-15.0 [facility] Comment on above: Performed By: #### C BC #### [facility] [address] [place] [address] Dr. Scott King Hematocrit (Bld) [Volume fraction] 51.3 % Normal 42.0-54.0 [facility] Comment on above: Performed By: #### C BC #### [facility] [address] [address] [address] Scott King Hemoglobin (Bld) [Mass/Vol] 17.5 g/dL Normal 14.0-18.0 [facility] Comment on above: Performed By: #### C BC #### [facility] [address] [place] [address] Dr. Scott King IG # 0.14 10e3/ul Critically high 0.00-0.03 [facility] Comment on above: Performed By: #### C BC #### [facility] [address] [place] [address] Dr. Scott King IG % 1.5 % Critically high 0.0-0.5 [facility] Comment on above: Performed By: #### C BC #### [facility] [address] [place] [address] Dr. Scott King LYMPH # 2.5 103/ul Normal 1.2-3.8 [facility] Comment on above: Performed By: #### C BC #### [facility] [address] [place] [address] Dr. Scott King Lymphocytes/100 WBC (Bld) 27.1 % Normal 20.5-60.0 [facility] Comment on above: Performed By: #### C BC #### [facility] [address] [place] [address] Dr. Scott King MANUAL DIFF REQ NO Normal [facility] Comment on above: Performed By: #### C BC #### [facility] [address] [place] [address] Dr. Scott King MCH (RBC) [Entitic mass] 29.6 pg Normal 25.9-34.0 [facility] Comment on above: Performed By: #### C BC #### [facility] [address] [place] [address] Dr. Scott King MCHC (RBC) [Mass/Vol] 34.1 g/dL Normal 29.9-35.2 [facility] Comment on above: Performed By: #### C BC #### [facility] [id number] Scott King MCV (RBC) [Entitic vol] 86.7 fL Normal 80.0-94.0 [facility] Comment on above: Performed By: #### C BC #### [facility] [address] [address] [address] Scott King MONO # 1.2 103/ul Critically high 0.3-0.8 [facility] Comment on above: Performed By: #### C BC #### [facility] [address] [address] [address] Scott King Monocytes/100 WBC (Bld) 12.5 % Critically high 1.7-12.0 [facility] Comment on above: Performed By: #### C BC #### [facility] [address] [address] [address] Scott King NEUT # 5.3 103/ul Normal 1.4-6.5 [facility] Comment on above: Performed By: #### C BC #### [facility] [address] [address] [address] Scott King Neutrophils/100 WBC (Bld) 57.0 % Normal 43.0-75.0 [facility] Comment on above: Performed By: #### C BC #### [facility] [address] [address] [address] Scott King Platelet mean volume (Bld) [Entitic vol] 9.7 fL Normal 9.5-13.5 [facility] Comment on above: Performed By: #### C BC #### [facility] [address] [address] [address] Scott King PLT 238 103/ul Normal 150-450 [facility] Comment on above: Performed By: #### C BC #### [facility] [id number] Scott King RBC 5.92 106/ul Normal 4.70-6.10 [facility] Comment on above: Performed By: #### C BC #### [facility] [address] [address] [address] Scott King WBC 9.4 103/ul Normal 4.0-11.0 [facility] Comment on above: Performed By: #### C BC #### [facility] [address] [address] [address] Scott King MONOon 10-07-2021 Monocytes (Bld) [#/Vol] Negative Normal NEGATIVE [facility] Comment on above: Performed By: #### M CARMEL #### [facility] [address] [place] [address] Dr. Scott King PROF CHEM 8 (BAS METB)on Anion gap [Moles/Vol] 10.7 mmol/L Normal [facility] Comment on above: Performed By: #### T SH, BMP #### [facility] [address] [place] [address] Dr. Scott King Calcium [Mass/Vol] 9.6 mg/dL Normal 8.4-10.2 [facility] Comment on above: Performed By: #### T SH, BMP #### [facility] [address] [place] [address] Dr. Scott King Chloride [Moles/Vol] 104 mmol/L Normal 98-107 [facility] Comment on above: Performed By: #### T SH, BMP #### [facility] [address] [place] [address] Dr. Scott King CO2 [Moles/Vol] 30.1 mmol/L Critically high 22.0-30.0 [facility] Comment on above: Performed By: #### T SH, BMP #### [facility] [address] [place] [address] Dr. cSott King Creatinine [Mass/Vol] 0.89 mg/dL Normal 0.66-1.25 [facility] Comment on above: Performed By: #### T SH, BMP #### [facility] [address] [place] [address] Dr. Scott King EGFR-AF PARAGUAYAN >60 Normal >=60 [facility] Comment on above: Performed By: #### T SH, BMP #### [facility] [address] [address] [address] Scott King EGFR-NON AF PARAGUAYAN >60 Normal >=60 [facility] Comment on above: Performed By: #### T SH, BMP #### [facility] [address] [address] [address] Scott King Glucose [Mass/Vol] 81 mg/dL Normal 74-106 [facility] Comment on above: Performed By: #### T SH, BMP #### [facility] [address] [address] [address] Scott King Potassium [Moles/Vol] 3.8 mmol/L Normal 3.4-5.0 [facility] Comment on above: Performed By: #### T SH, BMP #### [facility] [address] [place] [address] Dr. Scott King Sodium [Moles/Vol] 141 mmol/L Normal 137-145 [facility] Comment on above: Performed By: #### T SH, BMP #### [facility] [address] [place] [address] Dr. Scott King Urea nitrogen [Mass/Vol] 19.0 mg/dL Normal 9.0-20.0 [facility] Comment on above: Performed By: #### T SH, BMP #### [facility] [address] [place] [address] Dr. Scott King Urea nitrogen/Creatini ne [Mass ratio] 21.3 mg/mg Normal [facility] Comment on above: Performed By: #### T SH, BMP #### [facility] [address] [place] [address] Dr. Scott King TSHon 10-07-2021 TSH 2.491 uIU/mL Normal 0.470-4.680 [facility] Comment on above: Performed By: #### T SH, BMP #### [facility] [address] [place] [address] Dr. Scott King TSH RANGE SEE BELOW Normal [facility] Comment on above: Result Comment: <0.3 4 UIU/ml HYPERTHYROID 0.34-5.60 UIU/ml EUTHYROID >5.60 UIU/ml HYPOTHYROID Performed By: #### T , [facility] [place] #### [facility] [address] [place], [place] [address] Dr. Scott King XR Chest 2 Views*on 09-20-20 21 XR Chest 2 Views* CLINICAL HISTORY: Le ft anterior chest numbness COMPARISON: None. TECHNIQUE: Chest radiographs, PA and lateral RESULT: No consolidation. No pleural effusion. No pneumothorax. Normal pulmonary vascular pattern. Normal cardiomediastinal silhouette.] No acute osseous findings. IMPRESSION: No acute radiographic abnormality. Report reported and signed by KENYATTA TOLEDO on 09/20/2021 1220 Normal [facility] XR Spine Cervical Complete*o n 09-20-2021 XR [...] by KENYATTA TOLEDO on 09/20/2021 1222 Normal [facility] [employer] XR hand RT min 3V*on 021 XR hand RT min 3V* [facility] [address] [place] [address] XRay Report Signed Patient: Anaya Miles MR#: [id number] 5 : 1990 Acct:[id number] Age/Sex: 30 / M ADM Date: 02/09/21 Loc: XDUCLY Room: Type: [facility] Attending Dr: Mary QUESADA Ordering Provider: [...] Umesh John M.D.02/09/2021 11:37 AM Dictation Location: [place] [address] Transcribed By: [facility] 02/09/21 1137 Dictated By: Umesh John MD 02/09/21 1136 Signed By: 02/09/21 1137 [facility] Vital Signs Date Time Vital Sign Value Performing Clinician Facility 07-21-2023 18:00-0400 Body height 182.88 cm Nadya Lynch Other [facility] 07-21-2023 18:00-0400 Body mass index (BMI) [Ratio] 27.5 kg/m2 Nadya Lynch Other [facility] 07-21-2023 18:00-0400 Body temperature 97.9 [degF] Nadya Lynch Other [facility] 07-21-2023 18:00-0400 Body weight 91.99 kg Nadya Lynch Other [facility] 07-21-2023 18:00-0400 Respiratory rate 18 /min Nadya Lynch Other [facility] 07-21-2023 18:00-0400 SaO2% (BldA) [Mass fraction] 95 % Nadya Lynch Other [facility] 01-23-2023 19:20-0400 Body height 182.88 cm Rachael Cummings Other [facility] 01-23-2023 19:20-0400 Body mass index (BMI) [Ratio] 27.12 kg/m2 Rachael Cooleyler Other [facility] 01-23-2023 19:20-0400 Body temperature 98 [degF] Rachael Cummings Other [facility] 01-23-2023 19:20-0400 Body weight 90.72 kg Rachael Cummings Other [facility] 01-23-2023 19:20-0400 Respiratory rate 18 /min Rachael Cummings Other [facility] 01-23-2023 19:20-0400 SaO2% (BldA) [Mass fraction] 96 % Rachael Cooleyler Other [facility] Encounters Encounter Date Encounter Type Care Provider Facility Start: 07-21-2023 End: 07-21-2023 ambulatory Nadya Lynch Other [facility] Start: 07-21-2023 Office outpatient vi sit 25 minutes Nadya Lynch [facility] Start: 01-23-2023 End: 01-23-2023 ambulatory Rachael Cummings Other [facility] Start: 01-23-2023 Office outpatient vi sit 25 minutes Rachael Cummings [facility] Start: 10-07-2021 End: 10-07-[address] ABEL DEL RIO Facility: Payers Date Payer Category Payer Unknown [id number] 1957 Unknown [id number] Unknown [id number] Social History Date Type Detail Facility Sex Assigned At [facility] Evaluation note 07-21-2023 Note Date & Type Note Facility 07-21-2023 Evaluation note Encounter Date Diagnosis Assessment Notes Jun, Sore throat (ICD-10 - J02.9) Jun, Acute non-recurrent sinusitis, unspecified location (ICD-10 - J01.90) We will treat as sinus infection. Take Augmentin as prescribed and finish antibiotic course even if symptoms improve. Instructed to use [id number] r sinus medication per label instructions for treatment of symptoms. May use Tylenol and or Motrin as needed for fever and discomfort. Follow-up with PCP if symptoms do not improve or worsen. All questions and concerns addressed Jun, Suspected COVID-19 virus infection (ICD-10 - Z20.822) [facility] Other Evaluation note 01-23-2023 Note Date & [...] understanding and is agreeable to treatment plan [facility] Summary Purpose Family History No Family History Records FoundNo Family History Records FoundNo Family History Records Found Advance Directives No Advanced Directives Records FoundNo Advanced Directives Records FoundNo Advanced Directives Records Found Additional Source Comments (unrecognized sect ion and content) No Status Records FoundNo Status Records FoundNo Status Records Found INFORMATION SOURCE (unrecogn ized section and content) DATE CREATED AUTHOR 09/21/2021 [facility] dical Specialist DATE CREATED AUTHOR AUTHOR'S ORGANIZ ATION 10/09/2021 [facility] pital DATE CREATED AUTHOR AUTHOR'S ORGANIZ ATION 10/10/2021 [facility] REASON FOR VISIT (unrecogniz ed section and [...] BE BASED ON THE PRIMARY CLINICAL RECORDS. [employer] provides no warranty or guarantee of the accuracy or completeness of information in this document.
[2024-07-01] MEDS: LACTATED RINGER'S SOLUTION 1,000 ML 50 ML IV (13:04)
[2024-07-01] MEDS: BUPIVACAINE HCL 0.5% PF 50 MG/10 ML VIAL 20 ML INJ (14:05)
[2024-07-01] MEDS: HYDROMORPHONE HCL 0.5 MG/0.5 ML SYRINGE IV (14:36)
[2024-07-01] MEDS: HYDROCODONE/ACET 5-325 MG TABLET 1 TAB PO (15:37)
== END 2024-07-01 17:05 | disposition home or self-care (01) ==
LOC: ER 11:47 → SURGOUT 12:47
PROVIDERS: Emergency Provider Emergency Medicine; Visit Provider Surgery
PROC: (CPT 840; principal; 2024-07-01 13:00)
DX: K35.31 Acute appendicitis with localized peritonitis and gangrene, without perforation (principal); K38.1 Appendicular concretions; F17.290 Nicotine dependence, other tobacco product, uncomplicated
CPT/HCPCS: 44970; 36415; 74176; 80053; 85025; 87040; 88305; 96365; 96375; 99285; J0131; J0330; J0665; J1171; J1885; J2250; J2371; J2405; J2543; J2704; J3010

== ENCOUNTER 2024-10-21 08:27 | Emergency (ER) | payer OTHER, SELFPAY ==
[2024-10-21] VITALS (12 sets, daily range): BP systolic 123–157; BP diastolic 87–104; PULSE 62–78; TEMP 36.8; O2SAT 95–100; BMI 23.0
--- OUTSIDE RECORDS SUMMARY | 2024-10-21 08:35 | XMS_ITS | CCD ---
Author Organization [facility] Care Team Providers Care Buckle Assembler Name Role Phone QUANG, DR ABEL Sullivan Attending Cole DEL RIO, DR ABEL Sullivan Admitting Cole JORDAN, DR TOLBERT Consulting Unavailable REQUEST, DR MARLENE LISTED Primary Care Unavaila Rachael Travis Unavailable Nadya Lynch Unavailable NO FAMILY, PHYSICIAN Primary Care Provider MD Teddy Maldonado Attending Provider NONE, XXXX Primary Care Physician Unavailab Teddy Urban Attending Unavailable Teddy PENG Attending Unavailable NO FAMILY, PHYSICIAN Primary Care Unavailable Teddy Peng Attending Teddy Morales Admitting Unavailable Allergies Allergy Classification Reported Allergen(s) Allergy Type Date of Onset Reaction(s) Facility (1 source) No Known Medication Allergies; Translations: [No Known Medication Allergies] Propensity to adverse reactions (disorder) [facility] Repository Medications Current Medications Medication Drug Class(es) Dates Sig (Normalized) Sig (Original) amoxicillin 875 mg / clavulanate 125 mg oral tablet (2 sources) Penicillin-class Antibacterial Start: 12-25-2023 take 1 tablet by mouth twice daily Amoxicillin-Pot Clavulanate Active 1 TAB PO Twice daily December 25, 2023 12:00am Start: 07-21-2023 take 1 tablet by jayde th every twelve hours Amoxicillin-Pot Clavulanate 875-125 MG 1 tablet Orally every 12 hrs for 10 days Jun, Active fluticasone propionate 0.05 mg/actuat metered dose nasal spray (1 source) Corticosteroid Start: 12-25-2023 take 1 spray(s) nasal route once daily Fluticasone Propionate Active 2 SPRAY INTRANASAL Daily December 25, 2023 12:00am administer into each nostril ibuprofen 800 mg oral tablet (1 source) Nonsteroidal Anti-inflammatory Drug Start: 07-16-2017 take 800 mg by mouth three times daily Ibuprofen Active 800 MG PO Three times daily July 16, 2017 12:00am predniSONE 20 mg oral tablet (1 source) Start: 01-23-2023 take 1 tablet by mouth every twelve hours prednisone 20 MG 1 tablet Orally BID for 5 days January, Active Problems Active Problems Problem Classification Problem Date Documented Date Episodic/Chronic Appendicitis and other appendiceal conditions (2 sources) Acute appendicitis with localized peritonitis; Translations: [Acute appendicitis with localized peritonitis and gangrene, without perforation] Onset: 07-06-2024 Episodic Malaise and fatigue (1 source) Other fatigue; Translations: [OTHER FATIGUE] Onset: 10-09-2021 Episodic Nonspecific chest pain (1 source) Musculoskeletal chest pain; Translations: [Other chest pain] 09-03-2023 Episodic Other nervous system disorders (2 sources) [...] Test Name Value Interpretation Reference Range Facility Ambulatory Visit Summaryon 1 Ambulatory Visit Summary Ambulatory Visit Summary ANAYA MILES :1990 Visit Date:07/06/2024 Ambulatory Visit Instructions Your Diagnosis Acute gangrenous appendicitis with localized peritonitis, without perforation Your Care Team Attending Physician - Teddy PENG MD Primary Care Physician - NONE, XXXX Procedures Performed Laparoscopic appendectomy (07/01/2024). What to do next You Need to Schedule the Following Appointments Follow Up with ALINE DAVIS, Teddy Gomez, OSWALDO When: Only if needed Where: [address] [place] [address]- Allergies No Known Allergies No Known Medication Allergies Problems Ongoing - Any problem that you are currently receiving treatment for. Acute gangrenous appendicitis with localized peritonitis, without perforation Patient Survey You may receive a survey via text or e-mail asking about your office visit. Please share your experience with us by completing your survey. We appreciate your feedback and thank you for choosing us for your care. Kieran Flores [facility] General Surgery Office/Clini c Noteon 07-06-2024 General Surgery Office/Clinic Note General Surgery Office/Clinic Note Chief Complaint post operative follow up HPI Staff 5 day post operative follow up post lap appendectomy completed while inpatient at [facility]. Denies discomfort, taking Ibuprofen 400mg daily. Denies bleeding or drainage. Bowels moving well. History of Present Illness 5 days s/p LS appendectomy for acute, gangrenous appendicitis; pathology with acute appendicitis with fecalith; doing well, completing course of antibiotics; no fevers, no N/V; pain controlled with ibuprofen; normal bms, loose at times, no drainage from incisions. Review of Systems PHQ Score Initial Depression Screen Score: 0 SCORE ROS - Provider Constitutional: no fever, no sweats, no weight loss. Eyes: no glasses, no blurred vision, no visual loss. ENMT: no dentures, no hoarseness, no swallowing difficulties, no hearing loss, no ear infection(s), no nose bleeds. Cardiovascular: normal blood pressure, no chest pain, regular heartbeat, no heart murmur. Respiratory: no shortness of breath, no cough, no asthma, no wheezing. Gastrointestinal: no nausea, no vomiting, no diarrhea, no constipation, no blood in stool, no change in bowel habits, no abdominal pain, no hepatitis. Genitourinary: no kidney stones, no urine infection, no dysuria. Musculoskeletal: no pain, no weakness. Skin: no changing moles, no rash, no skin lumps. Neurologic: no seizures, no epilepsy, no headache. Psychiatric: no emotional or psychiatric problem. Heme/Lymph: no bleeding problems, no anemia, no blood clots, no transfusions. Allergy/Immunologic: no swollen lymph nodes/glands, no IV drug abuse. Other: Additional ROS info: Except as noted in the above Review of Systems and in the History of Present Illness, all other systems have been reviewed and are negative or noncontributory. Physical Exam abd: soft, nondistended, incisions without erythema or drainage; resolving ecchymosis; normal bs. Assessment/Plan 1. Acute gangrenous appendicitis with localized peritonitis, without perforation (K35.31: Acute appendicitis with localized peritonitis and gangrene, without perforation) doing well, no lifitng > 10 lbs for 3 more weeks; call with problems/questions. Follow-up With When Contact Information Teddy PENG MD, SUR Only if needed [address] [place] [id number]- Additional Instructions: Problem List/Past Medical History Ongoing Acute gangrenous appendicitis with localized peritonitis, without perforation Historical No qualifying data Procedure/Surgical History Laparoscopic appendectomy (07/01/2024). Medications No active medications Allergies No Known Allergies No Known Medication Allergies Social History Alcohol - Denies Alcohol Use, 07/06/2024 Substance Abuse - Denies Substance Abuse, 07/06/2024 Tobacco Never (less than 100 in lifetime) Tobacco Use:. Never Smokeless Tobacco Use:., 07/06/2024 Family History Family history is negative Normal [facility] Comment on above: Result Comment: Elec tronically Signed By: Teddy PENG MD\.br\Date and Time Signed: 07/06/24 15:04 EDT Tree 07-01-2024 L Specimen: [id number] Received: 07/02/24 Status: AGUSTIN Crouch Num: [id number] Spec Type: Surgical Subm Dr: Teddy Peng MD FACS Tissues: A Appendix - Other than Incidental (APPENDIX) Procedures: HE/2, Gross/Micro L3 Age/ Patient Sex Location Account Attending Physician Anaya Miles 33/M LABELL [id number] Teddy Peng MD FACS SPEC NUM: [id number] RECD: 07/02/24 STATUS: AGUSTIN CROUCH NUM: [id number] LA: 07/01/[address]: Teddy Peng MD FACS ENTERED: 07/02/24 [facility] DR: Sonia Felipe SPEC TYPE: Surgical DEPT: LETHA CHACON ENTERED BY: [id number] RECV BY: [id number] ORDERED: HE/2, Gross/Micro L3 ORDERED: HE/2, Gross/Micro L3 Pathological Diagnosis Appendix, appendectomy: - Acute purulent appendicitis and periappendicitis with fecalith. Clinical Information Acute appendicitis Gross Description The specimen is received in formalin with the patient's name and appendix and consists of a rodriguez-hugo inflamed vermiform appendix measuring 6.0 cm in length with a diameter of 1.0 cm. There is a staple line across the proximal margin. The proximal margin is removed and inked black. The serosal surface is rodriguez-hugo and smooth. The attached mesoappendix measures 5.0 x 2.8 x 1.0 cm. The specimen is sectioned revealing a lumen measuring 1.3 cm in diameter. The lumen is filled with brown purulent debris. There is a fecalith grossly identified measuring 0.8 cm in greatest dimension. Student Worker sections are as follows: A1: proximal margin and 2 cross-sections A2: distal tip bisected Microscopic Description Microscopic examination is performed. ---- Specimen: [id number] Received: 07/02/24 Status: AGUSTIN Crouch Num: [id number] Spec Type: Surgical Subm Dr: Teddy Peng MD FACS Tissues: A Appendix - Other than Incidental (APPENDIX) Procedures: HE/2, Gross/Micro L3 ---- Patient: Anaya Miles [id number] (Continued) ---- Specimen: [id number] Received: 07/02/24 (Continued) Signed (signature on file) Camden Gillis MD 07/22/24 1004 ---- Specimen: [id number] Received: 07/02/24 Status: AGUSTIN Crouch Num: [id number] Spec Type: Surgical Subm Dr: Teddy Peng MD FACS Tissues: A Appendix - Other than Incidental (APPENDIX) Procedures: HE/2, Gross/Micro L3 ---- Patient: Anaya Miles [id number] (Continued) ---- Specimen: [id number] Received: 07/02/24 (Continued) CPT Codes 15123 ---- ---- Specimen: [id number] Received: 07/02/24 Status: AGUSTIN Wolfdaly Num: [id number] Spec Type: Surgical Subm Dr: Teddy Peng MD FACS Tissues: A Appendix - Other than Incidental (APPENDIX) Procedures: HE/2, Gross/Micro L3 ---- Patient: Anaya Miles [id number] (Continued) ---- Signed (signature on file) Camden Gillis MD 07/22/24 1004 Normal [facility] COVID + FLU Quick Testingon 07-21-2023 SARS-CoV-2 (COVID-19) RNA MARTA+probe Ql (Unsp spec) Negative [facility] Other COVID + FLU Quick Testing Negative [facility] Other Quick Strepon 07-21-2023 S. pyogenes Org specific cx Ql (Throat) Negative [facility] Other Quick Strep [facility] Other Quick Strepon 01-23-2023 S. pyogenes Org specific cx Ql (Throat) Negative [facility] Other Quick Strep [facility] Other CBC AUTO DIFFon 10-07-2021 BASO # 0.0 103/ul Normal 0.0-0.1 [facility] Comment on above: Performed By: #### C BC #### [facility] [address] [place] [address] Dr. Scott King Basophils/100 WBC (Bld) 0.3 % Normal 0.2-2.0 [facility] Comment on above: Performed By: #### C BC #### [facility] [address] [place] [address] Dr. Scott King EO # 0.2 103/ul Normal 0.0-0.7 [facility] Comment on above: Performed By: #### C BC #### [facility] [address] [place] [address] Dr. Scott King Eosinophils/100 WBC (Bld) 1.6 % Normal 0.9-7.0 [facility] Comment on above: Performed By: #### C BC #### [facility] [address] [place] [address] Dr. Scott King Erythrocyte distribution width (RBC) [Ratio] 12.8 % Normal 11.0-15.0 [facility] Comment on above: Performed By: #### C BC #### [facility] [address] [place] [address] Dr. Scott King Hematocrit (Bld) [Volume fraction] 51.3 % Normal 42.0-54.0 [facility] Comment on above: Performed By: #### C BC #### [facility] [address] [place] [address] Dr. Scott King Hemoglobin (Bld) [Mass/Vol] 17.5 g/dL Normal 14.0-18.0 [facility] Comment on above: Performed By: #### C BC #### [facility] [address] [place] [address] Dr. Scott King IG # 0.14 10e3/ul Critically high 0.00-0.03 [facility] Comment on above: Performed By: #### C BC #### [facility] [address] [place] [address] Dr. Scott King IG % 1.5 % Critically high 0.0-0.5 [facility] Comment on above: Performed By: #### C BC #### [facility] [address] [place] [address] Dr. Scott King LYMPH # 2.5 103/ul Normal 1.2-3.8 [facility] Comment on above: Performed By: #### C BC #### [facility] [address] [place] [address] Dr. Scott King Lymphocytes/100 WBC (Bld) 27.1 % Normal 20.5-60.0 [facility] Comment on above: Performed By: #### C BC #### [facility] [address] [place] [address] Dr. Scott King MANUAL DIFF REQ NO Normal [facility] Comment on above: Performed By: #### C BC #### [facility] [address] [place] [address] Dr. Scott King MCH (RBC) [Entitic mass] 29.6 pg Normal 25.9-34.0 [facility] Comment on above: Performed By: #### C BC #### [facility] [address] [place] [address] Dr. Scott King MCHC (RBC) [Mass/Vol] 34.1 g/dL Normal 29.9-35.2 [facility] Comment on above: Performed By: #### C BC #### [facility] [address] [place] [address] Dr. Scott King MCV (RBC) [Entitic vol] 86.7 fL Normal 80.0-94.0 [facility] Comment on above: Performed By: #### C BC #### [facility] [address] [place] [address] Dr. Scott King MONO # 1.2 103/ul Critically high 0.3-0.8 [facility] Comment on above: Performed By: #### C BC #### [facility] [address] [place] [address] Dr. Scott King Monocytes/100 WBC (Bld) 12.5 % Critically high 1.7-12.0 [facility] Comment on above: Performed By: #### C BC #### [facility] [address] [place] [address] Dr. Scott King NEUT # 5.3 103/ul Normal 1.4-6.5 [facility] Comment on above: Performed By: #### C BC #### [facility] [address] [place] [address] Dr. Scott King Neutrophils/100 WBC (Bld) 57.0 % Normal 43.0-75.0 [facility] Comment on above: Performed By: #### C BC #### [facility] [address] [place] [address] Dr. Scott King Platelet mean volume (Bld) [Entitic vol] 9.7 fL Normal 9.5-13.5 [facility] Comment on above: Performed By: #### C BC #### [facility] [address] [place] [address] Dr. Scott King PLT 238 103/ul Normal 150-450 [facility] Comment on above: Performed By: #### C BC #### [facility] [address] [place], [place] [id number] Dr. Scott King RBC 5.92 106/ul Normal 4.70-6.10 [facility] Comment on above: Performed By: #### C BC #### [facility] [address] [place] [address] Dr. Scott King WBC 9.4 103/ul Normal 4.0-11.0 [facility] Comment on above: Performed By: #### C BC #### [facility] [address] [address] [address] Scott King MONOon 10-07-2021 Monocytes (Bld) [#/Vol] Negative Normal NEGATIVE [facility] Comment on above: Performed By: #### M CARMEL #### [facility] [address] [place] [address] [address] Scott King PROF CHEM 8 (BAS METB)on Anion gap [Moles/Vol] 10.7 mmol/L Normal [facility] Comment on above: Performed By: #### T SH, BMP #### [facility] [address] [place] [address] Dr. Scott King Calcium [Mass/Vol] 9.6 mg/dL Normal 8.4-10.2 [facility] Comment on above: Performed By: #### T SH, BMP #### [facility] [address] [place] [address] Dr. Scott King Chloride [Moles/Vol] 104 mmol/L Normal 98-107 [facility] Comment on above: Performed By: #### T SH, BMP #### [facility] [address] [place] [address] Dr. Scott King CO2 [Moles/Vol] 30.1 mmol/L Critically high 22.0-30.0 [facility] Comment on above: Performed By: #### T SH, BMP #### [facility] [address] [place] [address] Dr. Scott King Creatinine [Mass/Vol] 0.89 mg/dL Normal 0.66-1.25 [facility] Comment on above: Performed By: #### T SH, BMP #### [facility] [address] [place] [address] Dr. Scott King EGFR-AF [place] >60 Normal >=60 [facility] Comment on above: Performed By: #### T SH, BMP #### [facility] [address] [place] [address] Dr. Scott King EGFR-NON AF [place] >60 Normal >=60 [facility] Comment on above: Performed By: #### T SH, BMP #### [facility] [address] [place] [address] Dr. Scott King Glucose [Mass/Vol] 81 mg/dL Normal 74-106 [facility] Comment on above: Performed By: #### T SH, BMP #### [facility] [address] [place] [address] Dr. Scott King Potassium [Moles/Vol] 3.8 mmol/L Normal 3.4-5.0 [facility] Comment on above: Performed By: #### T SH, BMP #### [facility] [address] [place] [address] Dr. Scott King Sodium [Moles/Vol] 141 mmol/L Normal 137-145 [facility] Comment on above: Performed By: #### T SH, BMP #### [facility] [address] [place] [address] Dr. Scott King Urea nitrogen [Mass/Vol] 19.0 mg/dL Normal 9.0-20.0 [facility] Comment on above: Performed By: #### T SH, BMP #### [facility] [address] [place] [address] Dr. Scott King Urea nitrogen/Creatini ne [Mass ratio] 21.3 mg/mg Normal [facility] Comment on above: Performed By: #### T SH, BMP #### [facility] [address] [place] [address] Dr. Scott King TSHon 10-07-2021 TSH 2.491 uIU/mL Normal 0.470-4.680 [facility] Comment on above: Performed By: #### T SH, BMP #### [facility] [address] [place] [address] Dr. Scott King TSH RANGE SEE BELOW Normal [facility] Comment on above: Result Comment: <0.3 4 UIU/ml HYPERTHYROID 0.34-5.60 UIU/ml EUTHYROID >5.60 UIU/ml HYPOTHYROID Performed By: #### T SH, BMP #### [facility] [address] [id number] [address] Scott King XR Chest 2 Views*on 09-20-20 XR Chest 2 Views* CLINICAL HISTORY: Le ft anterior chest numbness COMPARISON: None. TECHNIQUE: Chest radiographs, PA and lateral RESULT: No consolidation. No pleural effusion. No pneumothorax. Normal pulmonary vascular pattern. Normal cardiomediastinal silhouette.] No acute osseous findings. IMPRESSION: No acute radiographic abnormality. Report reported and signed by KENYATTA TOLEDO on 09/20/2021 1220 Normal [facility] XR Spine Cervical Complete*o n 09-20-2021 XR [...] by KENYATTA TOLEDO on 09/20/2021 1222 Normal [facility] Vital Signs Date Time Vital Sign Value Performing Clinician Facility 07-21-2023 18:00-0400 Body height 182.88 cm Nadya Lynch Other [facility] Other 07-21-2023 18:00-0400 Body mass index (BMI) [Ratio] 27.5 kg/m2 Nadya Lynch Other [facility] Other 07-21-2023 18:00-0400 Body temperature 97.9 [degF] Nadya Lynch Other [facility] Other 07-21-2023 18:00-0400 Body weight 91.99 kg Nadya Lynch Other [facility] Other 07-21-2023 18:00-0400 Respiratory rate 18 /min Nadya Lynch Other [facility] Other 07-21-2023 18:00-0400 SaO2% (BldA) [Mass fraction] 95 % Nadya Cris Other [facility] Other 01-23-2023 19:20-0400 Body height 182.88 cm Rachael Cummings Other [facility] Other 01-23-2023 19:20-0400 Body mass index (BMI) [Ratio] 27.12 kg/m2 Rachael Cummings Other [facility] Other 01-23-2023 19:20-0400 Body temperature 98 [degF] Rachael Cummings Other [facility] Other 01-23-2023 19:20-0400 Body weight 90.72 kg Rachael Cummings Other [facility] Other 01-23-2023 19:20-0400 Respiratory rate 18 /min Rachael Cummings Other [facility] Other 01-23-2023 19:20-0400 SaO2% (BldA) [Mass fraction] 96 % Rachael Cummings Other [facility] Other Encounters Encounter Date Encounter Type Care Provider Facility Start: 07-06-2024 End: 07-06-2024 ambulatory Tdedy PENG Facility: [facility] Start: 07-06-2024 End: 07-06-2024 Patient encounter procedure Teddy PENG [facility] Start: 07-05-2024 ambulatory Teddy PENG Facility:[facility] Start: 07-02-2024 ambulatory Teddy PENG Facility:[facility] Start: 07-01-2024 End: 07-01-2024 ambulatory PHYSICIAN NO [facility] Work Phone: Start: 07-01-2024 End: 07-01-2024 Departed Referred PHYSICIAN NO [facility] Start: 07-01-2024 End: 07-01-2024 ambulatory Teddy PENG Facility:CD:[id number] Start: 07-21-2023 End: 07-21-2023 ambulatory Nadya Lynch Other [facility] Other Start: 07-21-2023 Office outpatient visit 25 minutes Nadya Lynch [facility] Start: 01-23-2023 End: 01-23-2023 ambulatory Rachael Cummings Other [facility] Other Start: 01-23-2023 Office outpatient visit 25 minutes Rachael Emiliano [facility] Start: 10-07-2021 End: 10-07-[address] ABEL DEL RIO Facility:[facility] Procedures Date Procedure Procedure Detail Performing Clinician Start: 07-01-2024 Laparoscopic appendectomy Teddy PENG Payers Date Payer Category Payer Unknown [id number] 2. [id number] 2024 Self-pay [id number] 1990 Unknown [id number] 1990 Unknown [id number] [id number] [id number] 1990 Unknown [id number] [id number] [id number] 1957 Unknown [id number] Unknown [id number] [id number] [id number] Social History Date Type Detail Facility Sex Assigned At [facility] Start: 07-16-2017 Tobacco smoking stat us [facility] Smoker (finding) [facility] Start: 1990 Sex Assigned At Male F [facility] Start: 07-06-2024 Tobacco smoking status Never s moked tobacco (finding) [facility] Tobacco smoking status Never [facility] Functional Status Date Assessment Result Facility 07-06-2024 Functional Status N/A [facility] Hospital Discharge instructions 07-02-2024 Note Date & Type Note Facility 07-02-2024 Hospital Discharg e instructions Follow Up Care 07/02/2024 09:18:32 With:ALINE DAVIS, OSWALDO [place] Address: [address] [place], [place] [id number]- When: only if needed [facility] Evaluation note 07-21-2023 Note Date & Type Note Facility 07-21-2023 Evaluation note Encounter Date Diagnosis Assessment Notes Jun, Sore throat (ICD-10 - J02.9) Jun, Acute non-recurrent sinusitis, unspecified location (ICD-10 - J01.90) We will treat as sinus infection. Take Augmentin as prescribed and finish antibiotic course even if symptoms improve. Instructed to use [id number] r sinus medication per label instructions for treatment of symptoms. May use Tylenol and or Motrin as needed for fever and discomfort. Follow-up with PCP if symptoms do not improve or worsen. All questions and concerns addressed Jun, Suspected COVID-19 virus infection (ICD-10 - Z20.822) [facility] Other Evaluation note 01-23-2023 Note Date & [...] understanding and is agreeable to treatment plan [facility] Other Evaluation + Plan note Note Date & Type Note Facility Evaluation + Plan note No data available for this section [facility] Evaluation note Note Date & Type Note Facility Evaluation note No assessment information availa [facility] Work Phone: Progress note Note Date & Type Note Facility Progress note No data available for this section [facility] Summary Purpose Family History No Family History Records FoundNo Family History Records Found No data available for this section No Family History Records FoundNo Family History Records Found Advance Directives No Advanced Directives Records Found Advance Directive Response Recorded Date/ Time Advance Directives No July 16, 2017 2:04pm Additional Source Comments (unrecognized sect ion and content) No Status Records FoundNo Status Records FoundNo Status Records FoundNo Status Records Found INFORMATION SOURCE (unrecogn ized section and content) DATE CREATED AUTHOR 09/21/2021 [facility] dical Specialist DATE CREATED AUTHOR AUTHOR'S ORGANIZ ATION 10/09/2021 [facility] DATE CREATED AUTHOR AUTHOR'S ORGANIZ ATION 07/20/2024 [facility] DATE CREATED AUTHOR AUTHOR'S ORGANIZ ATION 07/24/2024 [facility] REASON FOR VISIT (unrecogniz ed section and content) SORE THROATSORE THROAT, SORE EARS Care Teams (unrecognized sec tion and content) Team Status: Active Member Role Status Dates PHYSICIAN NO FAMILY Primary Care Provider Active Team Status: Inactive Member Role Status Dates PHYSICIAN NO FAMILY Primary Care Provider Active Start: July 01, 2024 End: July 01, 2024 Teddy Peng MD [facility] Attending Provider Active Start: July 01, 2024 End: July 01, 2024 Goals (unrecognized section and content) Goals may be documented in a n alternate section FOR RECORDS PERTAINING TO PATIENTS WHO ARE [...] BE BASED ON THE PRIMARY CLINICAL RECORDS. [employer] provides no warranty or guarantee of the accuracy or completeness of information in this document.
[2024-10-21 08:44] LABS: Glucometer 110 mg/dL (74-106)
--- NOTE | 2024-10-21 08:44 | CT_ITS ---
[place] [id number] Patient Name: ANAYA MILES MRN: [id number] date: 1990 Sex: M Assigned Patient Location: ER Current Patient Location: Accession/Order Number: [id number] Exam Date: 10/21/2024 08:53 Report Date: 10/21/2024 10:52 At the request of: REEMA DUNCAN Procedure: CT head/brain wo con CT head without contrast, 10/21/2024. HISTORY: Weakness. Dizziness. Blurred vision. COMPARISON: None. TECHNIQUE: Noncontrast axial CT images obtained through the head. Reconstructions obtained in the sagittal and coronal planes. Dose reduction techniques were achieved by using automated exposure control and/or adjustment of mA and/or kV according to patient size and/or use of iterative reconstruction technique. FINDINGS: There is opacification of the frontal sinus on the right. Middle ear cavities and mastoid air cells are clear. Skull base is intact. No skull lesion. Extracranial soft tissue structures are unremarkable. Ventricles are normal in size. No hydrocephalus. No mass effect. No shift of midline structures. No intracranial mass. Khoury matter and white matter differentiation intact. CT/CT head/brain wo con IMPRESSION: 1. No acute intracranial findings. No acute hemorrhage. 2. No masses. Electronically authenticated by: NOE BATISTA Date: 10/21/2024 10:52
--- NOTE | 2024-10-21 08:44 | ECG_ITS ---
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
--- NOTE | 2024-10-21 08:48 | ED_ITS ---
HPI HPI - General Adult General Chief complaint: Dizziness Stated complaint: DIZZINESS Time Seen by Provider: 10/21/24 08:43 Source: patient Mode of arrival: walk-in Limitations: no limitations History of Present Illness HPI narrative: The patient is coming to the ER with vague symptoms of feeling dizzy and foggy. Patient mentioned that he did not sleep all night around 5 am he almost feels like he is dizzy. The patient mentioned that he was awake searching things online all night The patient denies any headache at any time he still denies any upper or lower extremity weakness. He might have felt some numbness in his right hand although he is not sure And he does not have any symptoms at the moment he drove himself over to the ER with no difficulty. He also have no difficulty walking or any imbalance Patient mentioned that this feeling that he is not able to explain it comes mostly whenever he turns his eyes to the left side and sometime when he is grabbing something from the floor he would just feel some kind of dizzy Related Data Previous Rx's ?Medication ?Instructions ?Recorded meclizine 25 mg tablet 25 mg PO TID PRN motion sickness 10/21/24 #20 tabs Allergies Allergy/AdvReac Type Severity Reaction Status Date / Time No Known Drug Allergies Allergy Verified 10/21/24 08:30 Opioid HPI Opioid Management Most Recent Opioid Data: Last Pain Scale 3 07/01/24 16:36 07/01/24 Last ORT Total Score 1 03/14/24 22:12 03/14/24 Last ORT Risk Category Low Risk 03/14/24 22:12 03/14/24 Review of Systems ROS Status of ROS 10 or more systems reviewed and unremark able except as noted in history and below [facility] Medical History (Updated 10/21/24 @ 09:37 by Arianna Daniels MD) Cellulitis ?L03.90 - Cellulitis, unspecified (ICD-10) Ankle fracture, left ?S82.892A - Other fracture of left lower leg, initial encounter for closed fracture (ICD-10) Social History (Updated 03/14/24 @ 22:33 by Alisha Gibbons) Within the past year, how often did you have a drink containing alcohol: 2-4 times a month Within the past year, how often did you have six or more drinks on one occasion: less than monthly Do you use any of these nicotine containing products: vaping products Previous occupational history: [employer] Known occupational exposures/hazards: No Highest level of school completed/degree received: high school graduate Are you now , , , , never or living with a partner: never In a typical week, how many times do you talk on the telephone with family, friends, or neighbors: 3 or more times per week How often do you get together with friends or relatives: 3 or more times per week How often do you attend islam or baptism services: never Little interest or pleasure in doing things: not at all Feeling down, depressed, or hopeless: not at all Feel stressed/tense/nervous/anxious/difficulty sleeping: not at all Gender Identity: male Exam Narrative Exam Narrative: Nurses notes and vital signs reviewed and patient is not hypoxic. General: Well-appearing and in no apparent distress. Skin: Warm, dry, no pallor noted. No rash. Head: Normocephalic, atraumatic. Neck: Supple, non-tender. Eye: Pupils are equal, round and EOMI. No scleral icterus. The patient did had horizontal Nystagmus Ears, Nose, Mouth, and Throat: TM are clear, no nasal mucosal hypertrophy. Oral mucosa is moist, no posterior oropharynx erythema, uvula is mid-line Cardiovascular: Regular Rate and Rhythm without murmur, gallop or rub. Respiratory: No accessory muscle use or respiratory distress. Lungs are clear to auscultation, no wheezing, rales or rhonchi Chest Wall: no tenderness Back: No midline thoracic or lumbar vertebral tenderness. No CVA tenderness Musculoskeletal: normal ROM, no calf or popliteal tenderness, no lower extremity edema/swelling GI: Abdomen is soft, non-distended. Normal bowel sounds. No masses appreciated. No tenderness to palpation. No rebound, guarding, or rigidity noted. Neurological: A&O x4. No cranial nerve dysfunction observed. No truncal ataxia. Moves all extremities. Sensation intact. Psychiatric: Cooperative and interactive. Normal mood and affect. Constitutional Vital Signs, click to edit/add: Last Vital Signs Temp 98.2 F 10/21/24 08:30 Pulse 62 10/21/24 09:40 Resp 13 10/21/24 09:40 BP 123/87 10/21/24 09:00 Pulse Ox 100 10/21/24 09:48 O2 Del Method Room Air 10/21/24 09:48 Course Vital Signs Vital signs: Vital Signs Temperature 98.2 F 10/21/24 08:30 Pulse Rate 70 10/21/24 08:30 Respiratory Rate 16 10/21/24 08:30 Blood Pressure 154/104 H 10/21/24 08:30 Pulse Oximetry 100 10/21/24 08:30 Temperature 98.2 F 10/21/24 08:30 Pulse Rate 62 10/21/24 09:40 Respiratory Rate 13 10/21/24 09:40 Blood Pressure 123/87 10/21/24 09:00 Pulse Oximetry 100 10/21/24 09:48 Oxygen Delivery Method Room Air 10/21/24 09:48 Medical Decision Making MDM Narrative Medical decision making narrative: The patient EKG showing sinus rhythm with a heart rate of [address] elevation or depression CT head showed no acute pathology CBC and chemistry showed no acute pathology as well Patient presentation is mostly secondary to vertigo the patient was started on meclizine continue supportive care The patient is to follow up with primary care physician in next 2-3 days or to return to the emergency department should any of the signs or symptoms worsen or new symptoms develop. The patient agrees with the following Diagnosis and Treatment plan and the patient will be discharged home. Lab Data Labs: Lab Results 10/21/24 10/21/24 Range/Units 08:42 08:44 WBC 8.2 (4.0-11.0) 10^3/uL RBC 5.80 (4.70-6.10) 10^6/uL Hgb 17.6 (14.0-18.0) g/dL Hct 50.0 (42.0-54.0) % MCV 86.2 (80.0-94.0) fL MCH 30.3 (25.9-34.0) pg MCHC 35.2 (29.9-35.2) g/dL RDW 12.9 (11.0-15.0) % Plt Count 198 (150-450) 10^3/uL MPV 10.2 (9.5-13.5) fL Neut % (Auto) 50.4 (43.0-75.0) % Lymph % (Auto) 34.1 (20.5-60.0) % [place] % (Auto) 9.2 (1.7-12.0) % Eos % (Auto) 5.7 (0.9-7.0) % Baso % (Auto) 0.4 (0.2-2.0) % Neut # (Auto) 4.1 (1.4-6.5) 10^3/uL Lymph # (Auto) 2.8 (1.2-3.8) 10^3/uL [place] # (Auto) 0.8 (0.3-0.8) 10^3/uL Eos # (Auto) 0.5 (0.0-0.7) 10^3/uL Baso # (Auto) 0.0 (0.0-0.1) 10^3/uL Abs Immat Gran (auto) 0.02 (0.00-0.03) 10^3/uL Imm/Tot Granulo (auto) 0.2 (0.0-0.5) % PT 10.7 (9.0-11.6) sec INR 1.01 Sodium 140 (136-145) mmol/L Potassium 3.7 (3.5-5.1) mmol/L Chloride 103 (98-107) mmol/L Carbon Dioxide 30.5 (21.0-32.0) mmol/L Anion Gap 10.2 BUN 12.0 (7.0-18.0) mg/dL Creatinine 0.94 (0.70-1.30) mg/dL Est GFR ( Amer) >60 (>=60 mL/min/1.73m^2) Est GFR (Non-Af Amer) >60 (>=60 mL/min/1.73m^2) BUN/Creatinine Ratio 12.8 Glucose 105 (74-106) mg/dL Calcium 8.8 (8.5-10.1) mg/dL Total Bilirubin 0.6 (0.2-1.0) mg/dL AST 32 (15-37) U/L ALT 57 (16-63) U/L Alkaline Phosphatase 99 (46-116) U/L Troponin I High Sens <4.0 L (4.0-76.1) pg/mL Total Protein 7.2 (6.4-8.2) g/dL Albumin 4.3 (3.4-5.0) g/dL Globulin 2.9 g/dL Albumin/Globulin Ratio 1.5 POC Glucose 110 H (74-106) mg/dL Discharge Plan Discharge Chief Complaint: Dizziness Clinical Impression: Vertigo Patient Disposition: Home, Self-Care Time of Disposition Decision: 09:37 Condition: Good Prescriptions / Home Meds: New meclizine 25 mg tablet 25 mg PO TID PRN (Reason: motion sickness) Qty: 20 0RF Print Language: Turkmen Instructions: Vertigo (DC) Referrals: Physician,Non-Staff, MD [Primary Care Provider] - 1 week Discharge Date/Time: 10/21/24 09:52
[2024-10-21 08:53] LABS: Basophils Percent Auto 0.4 % (0.2-2.0); Eosinophils Absolute Auto 0.5 10^3/uL (0.0-0.7); Eosinophils Percent Auto 5.7 % (0.9-7.0); Hemoglobin 17.6 g/dL (14.0-18.0); Immature Granulocytes Abs Auto 0.02 10^3/uL (0.00-0.03); Immature Granulocytes Pct Auto 0.2 % (0.0-0.5); Lymphocytes Absolute Auto 2.8 10^3/uL (1.2-3.8); Lymphocytes Percent Auto 34.1 % (20.5-60.0); Mean Corpuscular HGB Conc 35.2 g/dL (29.9-35.2); Mean Corpuscular Hemoglobin 30.3 pg (25.9-34.0); Mean Corpuscular Volume 86.2 fL (80.0-94.0); Mean Platelet Volume 10.2 fL (9.5-13.5); Monocytes Absolute Auto 0.8 10^3/uL (0.3-0.8); Monocytes Percent Auto 9.2 % (1.7-12.0); Neutrophils Absolute Auto 4.1 10^3/uL (1.4-6.5); Neutrophils Percent Auto 50.4 % (43.0-75.0); Platelet Count 198 10^3/uL (150-450); Red Cell Distribution Width 12.9 % (11.0-15.0); White Blood Count 8.2 10^3/uL (4.0-11.0)
[2024-10-21 09:15] LABS: INR 1.01; Prothrombin Time 10.7 sec (9.0-11.6)
[2024-10-21 09:21] LABS: Alanine Aminotransferase 57 U/L (16-63); Albumin Globulin Ratio 1.5; Albumin Level 4.3 g/dL (3.4-5.0); Alkaline Phosphatase 99 U/L (46-116); Anion Gap 10.2; Aspartate Amino Transferase 32 U/L (15-37); BUN Creatinine Ratio 12.8; Bilirubin Total 0.6 mg/dL (0.2-1.0); Calcium 8.8 mg/dL (8.5-10.1); Carbon Dioxide 30.5 mmol/L (21.0-32.0); Chloride 103 mmol/L (98-107); Estimated GFR (African America >60 (>=60 mL/min/1.73m^2); Estimated GFR (Non-African Ame >60 (>=60 mL/min/1.73m^2); Globulin 2.9 g/dL; Glucose 105 mg/dL (74-106); Potassium 3.7 mmol/L (3.5-5.1); Sodium 140 mmol/L (136-145); Total Protein 7.2 g/dL (6.4-8.2)
[2024-10-21 09:24] LABS: Troponin I High Sensitivity <4.0 pg/mL (4.0-76.1)
== END 2024-10-21 09:52 | disposition home or self-care (01) ==
PROVIDERS: Emergency Provider Emergency Medicine
DX: R42 Dizziness and giddiness (principal); F17.290 Nicotine dependence, other tobacco product, uncomplicated
CPT/HCPCS: 36415; 70450; 80053; 84484; 85025; 85610; 93005; 99285

== ENCOUNTER 2024-10-22 18:10 | Emergency (ER) | payer OTHER, SELFPAY ==
[2024-10-22 18:11] VITALS: BP 153/88; PULSE 88; TEMP 36.8; O2SAT 98
--- OUTSIDE RECORDS SUMMARY | 2024-10-22 18:15 | XMS_ITS | CCD ---
Author Organization [facility] [place] [facility] Care Team Providers Care Mason Helper Name Role Phone QUANG, DR ABEL Sullivan [...] Medication Allergies] Propensity to adverse reactions (disorder) [facility] Repository Medications Current Medications Medication Drug Class(es) [...] OSWALDO When: Only if needed Where: [address] [place] [address]- Allergies No Known Allergies No Known Medication [...] choosing us for your care. Kieran Flores [facility] General Surgery Office/Clini c Noteon 07-06-2024 General Surgery Office/Clinic Note General Surgery Office/Clinic Note Chief Complaint post operative follow up HPI Staff 5 day post operative follow up post lap appendectomy completed while inpatient at [facility]. Denies discomfort, taking Ibuprofen 400mg daily. Denies [...] PENG MD, SUR Only if needed [address] [place] [id number]- Additional Instructions: Problem List/Past Medical History Ongoing [...] Family History Family history is negative Normal [facility] Comment on above: Result Comment: Elec tronically Signed By: Teddy PENG MD\.br\Date and Time Signed: 07/06/24 15:04 EDT Tree 07-01-2024 L Specimen: [id number] Received: 07/02/24 Status: AGUSTIN Crouch Num: [id number] Spec Type: Surgical Subm Dr: Teddy Peng MD FACS Tissues: A Appendix - Other than Incidental (APPENDIX) Procedures: HE/2, Gross/Micro L3 Age/ Patient Sex Location Account Attending Physician Anaya Miles 33/M LABELL [id number] Teddy Peng MD FACS SPEC NUM: [id number] RECD: 07/02/24 STATUS: AGUSTIN CROUCH NUM: [id number] LA: 07/01/[address]: Teddy Peng MD FACS ENTERED: 07/02/[address] [facility] [address]: Sonia Felipe SPEC TYPE: Surgical DEPT: LETHA CHACON ENTERED BY: [id number] RECV BY: [id number] ORDERED: HE/2, Gross/Micro L3 ORDERED: HE/2, Gross/Micro [...] identified measuring 0.8 cm in greatest dimension. [employer] sections are as follows: A1: proximal margin and 2 cross-sections A2: distal tip bisected Microscopic Description Microscopic examination is performed. ---- Specimen: [id number] Received: 07/02/24 Status: AGUSTIN Crouch Num: [id number] Spec Type: Surgical Subm Dr: Teddy Peng MD FACS Tissues: A Appendix - Other than Incidental (APPENDIX) Procedures: HE/2, Gross/Micro L3 ---- Patient: Anaya Miles [id number] (Continued) ---- Specimen: [id number] Received: 07/02/24 (Continued) Signed (signature on file) Camden Gillis MD 07/22/24 1004 ---- Specimen: [id number] Received: 07/02/24 Status: AGUSTIN Crouch Num: [id number] Spec Type: Surgical Subm Dr: Teddy Peng MD FACS Tissues: A Appendix - Other than Incidental (APPENDIX) Procedures: HE/2, Gross/Micro L3 ---- Patient: Anaya Miles [id number] (Continued) ---- Specimen: [id number] Received: 07/02/24 (Continued) CPT Codes 23300 ---- ---- Specimen: [id number] Received: 07/02/24 Status: AGUSTIN Wolfdaly Num: [id number] Spec Type: Surgical Subm Dr: Teddy Peng MD FACS Tissues: A Appendix - Other than Incidental (APPENDIX) Procedures: HE/2, Gross/Micro L3 ---- Patient: Anaya Miles [id number] (Continued) ---- Signed (signature on file) Camden Gillis MD 07/22/24 1004 Normal [facility] COVID + FLU Quick Testingon 07-21-2023 SARS-CoV-2 (COVID-19) RNA MARTA+probe Ql (Unsp spec) Negative [facility] Other COVID + FLU Quick Testing Negative [facility] Other Quick Strepon 07-21-2023 S. pyogenes Org specific cx Ql (Throat) Negative [facility] Other Quick Strep [facility] Other Quick Strepon 01-23-2023 S. pyogenes Org specific cx Ql (Throat) Negative [facility] Other Quick Strep [facility] Other CBC AUTO DIFFon 10-07-2021 BASO # 0.0 103/ul Normal 0.0-0.1 [facility] Comment on above: Performed By: #### C BC #### [facility] [address] [place] [address] Dr. Scott King Basophils/100 WBC (Bld) 0.3 % Normal 0.2-2.0 [facility] Comment on above: Performed By: #### C BC #### [facility] [address] [place] [address] Dr. Scott King EO # 0.2 103/ul Normal 0.0-0.7 [facility] Comment on above: Performed By: #### C BC #### [facility] [address] [place] [address] Dr. Scott King Eosinophils/100 WBC (Bld) 1.6 % Normal 0.9-7.0 [facility] Comment on above: Performed By: #### C BC #### [facility] [address] [place] [address] Dr. Scott King Erythrocyte distribution width (RBC) [Ratio] 12.8 % Normal 11.0-15.0 [facility] Comment on above: Performed By: #### C BC #### [facility] [address] [place] [address] Dr. Scott King Hematocrit (Bld) [Volume fraction] 51.3 % Normal 42.0-54.0 [facility] Comment on above: Performed By: #### C BC #### [facility] [address] [place] [address] Dr. Scott King Hemoglobin (Bld) [Mass/Vol] 17.5 g/dL Normal 14.0-18.0 [facility] Comment on above: Performed By: #### C BC #### [facility] [address] [place] [address] Dr. Scott King IG # 0.14 10e3/ul Critically high 0.00-0.03 [facility] Comment on above: Performed By: #### C BC #### [facility] [address] [place] [address] Dr. Scott King IG % 1.5 % Critically high 0.0-0.5 [facility] Comment on above: Performed By: #### C BC #### [facility] [address] [place] [address] Dr. Scott King LYMPH # 2.5 103/ul Normal 1.2-3.8 [facility] Comment on above: Performed By: #### C BC #### [facility] [address] [place] [address] Dr. Scott King Lymphocytes/100 WBC (Bld) 27.1 % Normal 20.5-60.0 [facility] Comment on above: Performed By: #### C BC #### [facility] [address] [place] [address] Dr. Scott King MANUAL DIFF REQ NO Normal [facility] Comment on above: Performed By: #### C BC #### [facility] [address] [place] [address] Dr. Scott King MCH (RBC) [Entitic mass] 29.6 pg Normal 25.9-34.0 [facility] Comment on above: Performed By: #### C BC #### [facility] [address] [place] [address] Dr. Scott King MCHC (RBC) [Mass/Vol] 34.1 g/dL Normal 29.9-35.2 [facility] Comment on above: Performed By: #### C BC #### [facility] [address] [place] [address] Dr. Scott King MCV (RBC) [Entitic vol] 86.7 fL Normal 80.0-94.0 [facility] Comment on above: Performed By: #### C BC #### [facility] [address] [place] [address] Dr. Scott King MONO # 1.2 103/ul Critically high 0.3-0.8 [facility] Comment on above: Performed By: #### C BC #### [facility] [address] [place] [address] Dr. Scott King Monocytes/100 WBC (Bld) 12.5 % Critically high 1.7-12.0 [facility] Comment on above: Performed By: #### C BC #### [facility] [address] [place] [address] Dr. Scott King NEUT # 5.3 103/ul Normal 1.4-6.5 [facility] Comment on above: Performed By: #### C BC #### [facility] [address] [place] [address] Dr. Scott King Neutrophils/100 WBC (Bld) 57.0 % Normal 43.0-75.0 [facility] Comment on above: Performed By: #### C BC #### [facility] [address] [place] [address] Dr. Scott King Platelet mean volume (Bld) [Entitic vol] 9.7 fL Normal 9.5-13.5 [facility] Comment on above: Performed By: #### C BC #### [facility] [address] [place] [address] Dr. Scott King PLT 238 103/ul Normal 150-450 [facility] Comment on above: Performed By: #### C BC #### [facility] [address] [place], [place] [id number] Dr. Scott King RBC 5.92 106/ul Normal 4.70-6.10 [facility] Comment on above: Performed By: #### C BC #### [facility] [address] [place] [address] Dr. Scott King WBC 9.4 103/ul Normal 4.0-11.0 [facility] Comment on above: Performed By: #### C BC #### [facility] [address] [address] [address] Scott King MONOon 10-07-2021 Monocytes (Bld) [#/Vol] Negative Normal NEGATIVE [facility] Comment on above: Performed By: #### M CARMEL #### [facility] [address] [address] [address] Scott King PROF CHEM 8 (BAS METB)on Anion gap [Moles/Vol] 10.7 mmol/L Normal [facility] Comment on above: Performed By: #### T SH, BMP #### [facility] [address] [place] [address] Dr. Scott King Calcium [Mass/Vol] 9.6 mg/dL Normal 8.4-10.2 [facility] Comment on above: Performed By: #### T SH, BMP #### [facility] [address] [place] [address] Dr. Scott King Chloride [Moles/Vol] 104 mmol/L Normal 98-107 [facility] Comment on above: Performed By: #### T SH, BMP #### [facility] [address] [place] [address] Dr. Scott King CO2 [Moles/Vol] 30.1 mmol/L Critically high 22.0-30.0 [facility] Comment on above: Performed By: #### T SH, BMP #### [facility] [address] [place] [address] Dr. Scott King Creatinine [Mass/Vol] 0.89 mg/dL Normal 0.66-1.25 [facility] Comment on above: Performed By: #### T SH, BMP #### [facility] [address] [place] [address] Dr. Scott King EGFR-AF MALAGASY >60 Normal >=60 [facility] Comment on above: Performed By: #### T SH, BMP #### [facility] [address] [place] [address] Dr. Scott King EGFR-NON AF MALAGASY >60 Normal >=60 [facility] Comment on above: Performed By: #### T SH, BMP #### [facility] [address] [place] [address] Dr. Scott King Glucose [Mass/Vol] 81 mg/dL Normal 74-106 [facility] Comment on above: Performed By: #### T SH, BMP #### [facility] [address] [place] [address] Dr. Scott King Potassium [Moles/Vol] 3.8 mmol/L Normal 3.4-5.0 [facility] Comment on above: Performed By: #### T SH, BMP #### [facility] [address] [place] [address] Dr. Scott King Sodium [Moles/Vol] 141 mmol/L Normal 137-145 [facility] Comment on above: Performed By: #### T SH, BMP #### [facility] [address] [place] [address] Dr. Scott King Urea nitrogen [Mass/Vol] 19.0 mg/dL Normal 9.0-20.0 [facility] Comment on above: Performed By: #### T SH, BMP #### [facility] [address] [place] [address] Dr. Scott King Urea nitrogen/Creatini ne [Mass ratio] 21.3 mg/mg Normal [facility] Comment on above: Performed By: #### T SH, BMP #### [facility] [address] [place] [address] Dr. Scott King TSHon 10-07-2021 TSH 2.491 uIU/mL Normal 0.470-4.680 [facility] Comment on above: Performed By: #### T SH, BMP #### [facility] [address] [place] [address] Dr. Scott King TSH RANGE SEE BELOW Normal [facility] Comment on above: Result Comment: <0.3 4 UIU/ml HYPERTHYROID 0.34-5.60 UIU/ml EUTHYROID >5.60 UIU/ml HYPOTHYROID Performed By: #### T SH, BMP #### [facility] [address] [id number] Scott King XR Chest 2 Views*on 09-20-20 XR Chest 2 Views* CLINICAL HISTORY: Le ft anterior chest numbness COMPARISON: None. TECHNIQUE: Chest radiographs, PA and lateral RESULT: No consolidation. No pleural effusion. No pneumothorax. Normal pulmonary vascular pattern. Normal cardiomediastinal silhouette.] No acute osseous findings. IMPRESSION: No acute radiographic abnormality. Report reported and signed by KENYATTA TOLEDO on 09/20/2021 1220 Normal [facility] [employer] XR Spine Cervical Complete*o n 09-20-2021 XR [...] KENYATTA TOLEDO on 09/20/2021 1222 Normal [facility] Vital Signs Date Time Vital Sign Value Performing Clinician Facility 07-21-2023 18:00-0400 Body height 182.88 cm Nadya Lynch Other [facility] Other 07-21-2023 18:00-0400 Body mass index (BMI) [Ratio] 27.5 kg/m2 Nadya Lynch Other [facility] Other 07-21-2023 18:00-0400 Body temperature 97.9 [degF] Nadya Lynch Other [facility] Other 07-21-2023 18:00-0400 Body weight 91.99 kg Nadya Lynch Other [facility] Other 07-21-2023 18:00-0400 Respiratory rate 18 /min Nadya Lynch Other [facility] Other 07-21-2023 18:00-0400 SaO2% (BldA) [Mass fraction] 95 % Nadya Cris Other [facility] Other 01-23-2023 19:20-0400 Body height 182.88 cm Rachael Cummings Other [facility] Other 01-23-2023 19:20-0400 Body mass index (BMI) [Ratio] 27.12 kg/m2 Rachael Cummings Other [facility] Other 01-23-2023 19:20-0400 Body temperature 98 [degF] Rachael Cummings Other [facility] Other 01-23-2023 19:20-0400 Body weight 90.72 kg Rachael Cummings Other [facility] Other 01-23-2023 19:20-0400 Respiratory rate 18 /min Rachael Cummings Other [facility] Other 01-23-2023 19:20-0400 SaO2% (BldA) [Mass fraction] 96 % Rachael Cummings Other [facility] Other Encounters Encounter Date Encounter Type Care Provider Facility Start: 07-06-2024 End: 07-06-2024 ambulatory Teddy PENG Facility: [facility] Start: 07-06-2024 End: 07-06-2024 Patient encounter procedure Teddy PENG [facility] Start: 07-05-2024 ambulatory Teddy PENG Facility:[facility] Start: 07-02-2024 ambulatory Teddy PENG Facility:[facility] Start: 07-01-2024 End: 07-01-2024 ambulatory PHYSICIAN NO [facility] Work Phone: Start: 07-01-2024 End: 07-01-2024 Departed Referred PHYSICIAN NO [facility] Start: 07-01-2024 End: 07-01-2024 ambulatory Teddy PENG Facility:CD:[id number] Start: 07-21-2023 End: 07-21-2023 ambulatory Nadya Lynch Other [facility] Other Start: 07-21-2023 Office outpatient visit 25 minutes Nadya Lynch [facility] Start: 01-23-2023 End: 01-23-2023 ambulatory Rachael Cummings Other [facility] Other Start: 01-23-2023 Office outpatient visit 25 minutes Rachael Emiliano [facility] Start: 10-07-2021 End: 10-07-[address] ABEL DEL RIO Facility:[facility] Procedures Date Procedure Procedure Detail Performing Clinician Start: 07-01-2024 Laparoscopic appendectomy Teddy PENG Payers Date Payer Category Payer Unknown [id number] 2024 Self-pay [id number] 1990 Unknown [id number] 1992 Unknown [id number] [id number] [id number] 1992 Unknown [id number] [id number] [id number] 1959 Unknown [id number] Unknown [id number] 2.16.8 [id number] Social History Date Type Detail Facility Sex Assigned At [facility] Start: 07-16-2017 Tobacco smoking stat us [facility] Smoker (finding) [facility] Start: 1990 Sex Assigned At Male F [facility] Start: 07-06-2024 Tobacco smoking status Never s moked tobacco (finding) [facility] Tobacco smoking status Never [facility] Functional Status Date Assessment Result Facility 07-06-2024 Functional Status N/A [facility] Hospital Discharge instructions 07-02-2024 Note Date & Type Note Facility 07-02-2024 Hospital Discharg e instructions Follow Up Care 07/02/2024 09:18:32 With:ALINE DAVIS, OSWALDO [place] Address: [address] [place], [place] [id number]- When: only if needed [facility] Evaluation note 07-21-2023 Note Date & Type Note Facility 07-21-2023 Evaluation note Encounter Date Diagnosis Assessment Notes Jun, Sore throat (ICD-10 - J02.9) Jun, Acute non-recurrent sinusitis, unspecified location (ICD-10 - J01.90) We will treat as sinus infection. Take Augmentin as prescribed and finish antibiotic course even if symptoms improve. Instructed to use bnel-tnj-awaial r sinus medication per label instructions for treatment of symptoms. May use Tylenol and or Motrin as needed for fever and discomfort. Follow-up with PCP if symptoms do not improve or worsen. All questions and concerns addressed Jun, Suspected COVID-19 virus infection (ICD-10 - Z20.822) [facility] Other Evaluation note 01-23-2023 Note Date & [...] understanding and is agreeable to treatment plan [facility] Other Evaluation + Plan note Note Date & Type Note Facility Evaluation + Plan note No data available for this section [facility] Evaluation note Note Date & Type Note Facility Evaluation note No assessment information availa [facility] Work Phone: Progress note Note Date & Type Note Facility Progress note No data available for this section [facility] Summary Purpose Family History No Family [...] section and content) DATE CREATED AUTHOR 09/21/2021 [facility] dical Specialist DATE CREATED AUTHOR AUTHOR'S ORGANIZ ATION 10/09/2021 [facility] DATE CREATED AUTHOR AUTHOR'S ORGANIZ ATION 07/20/2024 [facility] DATE CREATED AUTHOR AUTHOR'S ORGANIZ ATION 07/24/2024 [facility] REASON FOR VISIT (unrecogniz ed section and content) SORE THROATSORE THROAT, SORE EARS Care Teams (unrecognized sec tion and content) Team Status: Active Member Role Status Dates PHYSICIAN NO FAMILY Primary Care Provider Active Team Status: Inactive Member Role Status Dates PHYSICIAN NO FAMILY Primary Care Provider Active Start: July 01, 2024 End: July 01, 2024 Teddy Peng MD [facility] Attending Provider Active Start: July 01, 2024 [...] BE BASED ON THE PRIMARY CLINICAL RECORDS. [employer] provides no warranty or guarantee of the accuracy or completeness of information in this document.
--- NOTE | 2024-10-22 19:12 | CT_ITS ---
[facility] [place] [id number] Patient Name: ANAYA MILES MRN: [id number] date: 1990 Sex: M Assigned Patient Location: ER Current Patient Location: ER Accession/Order Number: [id number] Exam Date: 10/22/2024 19:15 Report Date: 10/22/2024 20:53 At the request of: JANAK BARNARD Procedure: CT abdomen pelvis wo con CT ABDOMEN/PELVIS WITHOUT IV CONTRAST. INDICATION: right flank pain COMPARISON: 07/01/2024 TECHNIQUE: Contiguous axial images were obtained from the lung bases to the pelvic floor without intravenous or oral contrast. Coronal and sagittal reformations are provided. FINDINGS: LOWER LUNGS: Clear. LIVER/BILIARY TREE: No discrete lesion. No intrahepatic ductal dilatation. GALLBLADDER: No significant gallbladder wall thickening. No radiopaque stone. CBD: Normal CBD. SPLEEN: Normal in size. PANCREAS: No appreciable peripancreatic fluid. No pancreatic ductal dilatation. No discrete lesion. ADRENALS: Normal. KIDNEYS: No hydronephrosis. No radiopaque calculus. STOMACH AND BOWEL: Stomach is unremarkable. No dilated bowel loops. No bowel wall thickening. APPENDIX: Status post appendectomy. PERITONEAL CAVITY: No fluid. No fat stranding. ABDOMINAL WALL: No subcutaneous stranding. No subcutaneous fluid collection. There is a small umbilical hernia containing fat. LYMPH NODES: No mesenteric or retroperitoneal lymphadenopathy by CT criteria. ABDOMINAL AORTA: No aneurysm. PELVIS: No acute abnormality. MUSCULOSKELETAL: No acute osseous abnormality. CT/CT abdomen pelvis wo con IMPRESSION: No acute abnormality in the abdomen or pelvis. Electronically authenticated by: CHEVY BETHEA Date: 10/22/2024 20:53
[2024-10-22 19:17] LABS: Basophils Percent Auto 0.3 % (0.2-2.0); Eosinophils Absolute Auto 0.4 10^3/uL (0.0-0.7); Hematocrit 48.6 % (42.0-54.0); Immature Granulocytes Abs Auto 0.02 10^3/uL (0.00-0.03); Immature Granulocytes Pct Auto 0.3 % (0.0-0.5); Lymphocytes Absolute Auto 1.9 10^3/uL (1.2-3.8); Mean Corpuscular Hemoglobin 30.7 pg (25.9-34.0); Mean Corpuscular Volume 87.7 fL (80.0-94.0); Mean Platelet Volume 10.7 fL (9.5-13.5); Monocytes Absolute Auto 0.6 10^3/uL (0.3-0.8); Neutrophils Absolute Auto 4.6 10^3/uL (1.4-6.5); Neutrophils Percent Auto 61.4 % (43.0-75.0); Platelet Count 222 10^3/uL (150-450); Red Blood Count 5.54 10^6/uL (4.70-6.10); Red Cell Distribution Width 12.9 % (11.0-15.0); White Blood Count 7.4 10^3/uL (4.0-11.0)
[2024-10-22 19:27] LABS: Alanine Aminotransferase 53 U/L (16-63); Albumin Globulin Ratio 1.5; Albumin Level 4.1 g/dL (3.4-5.0); Alkaline Phosphatase 89 U/L (46-116); Anion Gap 7.9; Aspartate Amino Transferase 25 U/L (15-37); Bilirubin Total 0.6 mg/dL (0.2-1.0); Calcium 8.7 mg/dL (8.5-10.1); Carbon Dioxide 33.2 mmol/L (21.0-32.0); Chloride 104 mmol/L (98-107); Estimated GFR (African America >60 (>=60 mL/min/1.73m^2); Estimated GFR (Non-African Ame >60 (>=60 mL/min/1.73m^2); Globulin 2.8 g/dL; Glucose 98 mg/dL (74-106); Potassium 4.1 mmol/L (3.5-5.1); Sodium 141 mmol/L (136-145); Total Protein 6.9 g/dL (6.4-8.2)
[2024-10-22] MEDS: KETOROLAC TROMETHAMINE 30 MG/ML VIAL IVP (19:42)
[2024-10-22] MEDS: ONDANSETRON PF 4 MG/2 ML VIAL IV (19:42)
--- NOTE | 2024-10-22 19:51 | ED.ABDPAIN1 ---
HPI - Abdominal Pain General Chief Complaint: Abdominal Pain Stated Complaint: ABD PAIN Time Seen by Provider: 10/22/24 19:00 Source: patient Mode of arrival: walk-in Limitations: no limitations History of Present Illness HPI narrative: 34-year-old male presents here with chief complaint of right groin and flank pain. Patient states pain began earlier today. He states he was doing some heavy lifting several days ago does not recall any pulling. He does have a history of a neck appendectomy last year. Patient denies any fevers chills has mild nausea. Denies any urinary symptoms denies any known history of kidney stones. Vital signs are stable he is not currently febrile. Related Data Previous Rx's ?Medication ?Instructions ?Recorded meclizine 25 mg tablet 25 mg PO TID PRN motion sickness 10/21/24 #20 tabs ibuprofen 600 mg tablet 600 mg PO Q8H PRN fever or pain 10/22/24 #20 tabs Allergies Allergy/AdvReac Type Severity Reaction Status Date / Time No Known Drug Allergies Allergy Verified 10/21/24 08:30 Review of Systems ROS Narrative All Systems are negative except as noted/marked.All systems reviewed and otherwise negative [facility] Medical History (Updated 10/22/24 @ 20:59 by Carisa Bazzi) Cellulitis ?L03.90 - Cellulitis, unspecified (ICD-10) Ankle fracture, left ?S82.892A - Other fracture of left lower leg, initial encounter for closed fracture (ICD-10) Social History (Updated 03/14/24 @ 22:33 by Alisha Gibbons) Within the past year, how often did you have a drink containing alcohol: 2-4 times a month Within the past year, how often did you have six or more drinks on one occasion: less than monthly Do you use any of these nicotine containing products: vaping products Previous occupational history: [employer] Known occupational exposures/hazards: No Highest level of school completed/degree received: high school graduate Are you now , , , , never or living with a partner: never In a typical week, how many times do you talk on the telephone with family, friends, or neighbors: 3 or more times per week How often do you get together with friends or relatives: 3 or more times per week How often do you attend zoroastrianism or taoism services: never Little interest or pleasure in doing things: not at all Feeling down, depressed, or hopeless: not at all Feel stressed/tense/nervous/anxious/difficulty sleeping: not at all Gender Identity: male Exam Narrative Exam Narrative: Nurses note and vital signs reviewed and patient is not hypoxic. General: The patient appears well and in no apparent distress. Patient is resting comfortably on cart. Skin: Warm, dry, no pallor noted. There is no rash noted. Head: Normocephalic, atraumatic Eye: Normal conjunctiva, no drainage, EOMI. PERRL Ears, Nose, Mouth, and Throat: oral mucosa is moist. Nares patent. Mouth without vesicles. Ear canals patent. Tm's without Erythema Cardiovascular: Regular Rate and Rhythm Respiratory: Patient is in no distress, no accessory muscle use, lungs are clear to auscultation, no wheezing, rales or rhonchi Back: non-tender, no CVA tenderness bilaterally to percussion. GI: Normal bowel sounds, no tenderness to palpation, no masses appreciated. No rebound, guarding, or rigidity noted. Musculoskeletal: The patient has no evidence of calf tenderness, no pitting edema, symmetrical pulses noted bilaterally Neurological: A&O x4, normal speech Psychiatric: Cooperative Constitutional Vital Signs, click to edit/add: Last Vital Signs Temp 98.2 F 10/22/24 18:11 Pulse 88 10/22/24 18:11 Resp 18 10/22/24 18:11 BP 153/88 H 10/22/24 18:11 Pulse Ox 98 10/22/24 18:11 O2 Del Method Room Air 10/22/24 18:11 Course Vital Signs Vital signs: Vital Signs Temperature 98.2 F 10/22/24 18:11 Pulse Rate 88 10/22/24 18:11 Respiratory Rate 18 10/22/24 18:11 Blood Pressure 153/88 H 10/22/24 18:11 Pulse Oximetry 98 10/22/24 18:11 Oxygen Delivery Method Room Air 10/22/24 18:11 Temperature 98.2 F 10/22/24 18:11 Pulse Rate 88 10/22/24 18:11 Respiratory Rate 18 10/22/24 18:11 Blood Pressure 153/88 H 10/22/24 18:11 Pulse Oximetry 98 10/22/24 18:11 Oxygen Delivery Method Room Air 10/22/24 18:11 MDM - Abdominal Pain MDM Narrative Medical decision making narrative: 34-year-old male presents here with chief complaint of right groin and flank pain. Patient states pain began earlier today. He states he was doing some heavy lifting several days ago does not recall any pulling. He does have a history of a neck appendectomy last year. Patient denies any fevers chills has mild nausea. Denies any urinary symptoms denies any known history of kidney stones. Vital signs are stable he is not currently febrile. Blood work is unremarkable at this time he has been medicated with 30 mg of Toradol he states it did help to alleviate some of his pain. CT scan and urinalysis currently pending. Negative. Patient's pain was resolved with Toradol. Believe he has a right lower inguinal, groin strain. Patient told to use ice for any discomfort. Discharged home with prescription ibuprofen. CT scan read by radiologist showed nothing acute small umbilical hernia nonstrangulated. Otherwise unremarkable. Patient will follow-up primary care physician. Differential Diagnosis Differential diagnosis: Likely abdominal pain and other (right inguinal strain) Medical Records Attestation: I reviewed the patient's medical records. Lab Data Attestation: I reviewed the patient's lab results. Labs: Lab Results 10/22/24 10/22/24 Range/Units 18:30 20:10 WBC 7.4 (4.0-11.0) 10^3/uL RBC 5.54 (4.70-6.10) 10^6/uL Hgb 17.0 (14.0-18.0) g/dL Hct 48.6 (42.0-54.0) % MCV 87.7 (80.0-94.0) fL MCH 30.7 (25.9-34.0) pg MCHC 35.0 (29.9-35.2) g/dL RDW 12.9 (11.0-15.0) % Plt Count 222 (150-450) 10^3/uL MPV 10.7 (9.5-13.5) fL Neut % (Auto) 61.4 (43.0-75.0) % Lymph % (Auto) 25.0 (20.5-60.0) % [place] % (Auto) 8.0 (1.7-12.0) % Eos % (Auto) 5.0 (0.9-7.0) % Baso % (Auto) 0.3 (0.2-2.0) % Neut # (Auto) 4.6 (1.4-6.5) 10^3/uL Lymph # (Auto) 1.9 (1.2-3.8) 10^3/uL [place] # (Auto) 0.6 (0.3-0.8) 10^3/uL Eos # (Auto) 0.4 (0.0-0.7) 10^3/uL Baso # (Auto) 0.0 (0.0-0.1) 10^3/uL Abs Immat Gran (auto) 0.02 (0.00-0.03) 10^3/uL Imm/Tot Granulo (auto) 0.3 (0.0-0.5) % Sodium 141 (136-145) mmol/L Potassium 4.1 (3.5-5.1) mmol/L Chloride 104 (98-107) mmol/L Carbon Dioxide 33.2 H (21.0-32.0) mmol/L Anion Gap 7.9 BUN 17.0 (7.0-18.0) mg/dL Creatinine 1.31 H (0.70-1.30) mg/dL Est GFR ( Amer) >60 (>=60 mL/min/1.73m^2) Est GFR (Non-Af Amer) >60 (>=60 mL/min/1.73m^2) BUN/Creatinine Ratio 13.0 Glucose 98 (74-106) mg/dL Calcium 8.7 (8.5-10.1) mg/dL Total Bilirubin 0.6 (0.2-1.0) mg/dL AST 25 (15-37) U/L ALT 53 (16-63) U/L Alkaline Phosphatase 89 (46-116) U/L Total Protein 6.9 (6.4-8.2) g/dL Albumin 4.1 (3.4-5.0) g/dL Globulin 2.8 g/dL Albumin/Globulin Ratio 1.5 Urine Color Yellow (YELLOW) Urine Clarity Clear (CLEAR) Urine pH 7.0 (5.0-9.0) Ur Specific [place] 1.020 (1.005-1.025) Urine Protein Negative (NEG/TRACE) mg/dL Urine Glucose (UA) Negative (NEGATIVE) mg/dL Urine Ketones Trace A (NEGATIVE) mg/dL Urine Occult Blood Negative (NEGATIVE) Urine Nitrite Negative (NEGATIVE) Urine Bilirubin Negative (NEGATIVE) Urine Urobilinogen 1.0 (0.2-1.0) EU/dL Ur Leukocyte Esterase Negative (NEGATIVE) Urine RBC 0-2 (0-2) #/HPF Urine WBC 0-2 A (NONE SEEN) #/HPF Ur Squamous Epith Cells Rare (NONE/RARE) #/LPF Urine Crystals None seen (None Seen) #/HPF Amorphous Sediment Few Urine Bacteria Trace A (NONE SEEN) #/HPF Urine Casts None seen (NONE SEEN) #/LPF Urine Mucus Trace A (NONE SEEN) Imaging Data CT scan - abdomen: Radiologist's impression: ITS Impressions Abdomen/Pelvis CT 10/22/24 19:12 IMPRESSION: No acute abnormality in the abdomen or pelvis. Electronically authenticated by: CHEVY BETHEA Date: 10/22/2024 20:53 Discharge Plan Discharge Chief Complaint: Abdominal Pain Clinical Impression: Inguinal strain Patient Disposition: Home, Self-Care Time of Disposition Decision: 20:58 Condition: Good Prescriptions / Home Meds: New ibuprofen 600 mg tablet 600 mg PO Q8H PRN (Reason: fever or pain) Qty: 20 0RF No Action meclizine 25 mg tablet 25 mg PO TID PRN (Reason: motion sickness) Qty: 20 0RF Print Language: Cambodian Instructions: Muscle Strain (ED), Groin Strain (ED) Referrals: Physician,Non-Staff, MD [Primary Care Provider] - 1 week
[2024-10-22 20:14] LABS: Bilirubin Urine NEGATIVE (NEGATIVE); Blood Urine NEGATIVE (NEGATIVE); Clarity Urine CLEAR (CLEAR); Color Urine YELLOW (YELLOW); Glucose Urine UA NEGATIVE (NEGATIVE); Ketones Urine TRACE mg/dL (NEGATIVE); Leukocyte Esterase Urine NEGATIVE (NEGATIVE); Nitrite Urine NEGATIVE (NEGATIVE); Protein Urine NEGATIVE (NEG/TRACE)
[2024-10-22 20:21] LABS: Bacteria Urine TRACE #/HPF (NONE SEEN); Crystals Seen? None Seen #/HPF (None Seen); Mucus Urine TRACE (NONE SEEN); RBC Urine 0-2 #/HPF (0-2); Squamous Epithelial Cell Urine RARE #/LPF (NONE/RARE); WBC Urine 0-2 #/HPF (NONE SEEN)
[2024-10-22 20:22] LABS: Amorphous Sediment Urine FEW; Cast Seen? NONE SEEN #/LPF (NONE SEEN)
== END 2024-10-22 21:08 | disposition home or self-care (01) ==
PROVIDERS: Physician Assistant; Emergency Provider Emergency Medicine
DX: S39.011A Strain of muscle, fascia and tendon of abdomen, initial encounter (principal); X50.0XXA Overexertion from strenuous movement or load, initial encounter; F17.290 Nicotine dependence, other tobacco product, uncomplicated; Z90.49 Acquired absence of other specified parts of digestive tract
CPT/HCPCS: 36415; 74176; 80053; 81001; 85025; 96374; 96375; 99284; J1885; J2405